=== PATIENT | male | born 1945 | race Caucasian/White ===

== ENCOUNTER 2016-09-15 22:20 | Inpatient (IN) | payer MEDICARE ==
[~2016-09-15] VITALS: Ht 170.1 cm; Wt 103.9 kg
[2016-09-15 22:20] VITALS: BP 148/75
[~2016-09-15 22:20] MED LIST: AMARYL4 MG PO; ASPIRIN325 M2 PO; ASPIRIN81 M1 PO; FISH OIL CONC1000 M1 PO; LEVOTHYROXIN0.125 MG PO; LISINOPRIL10 M1 PO; METFORMIN1000 MG PO; PRIMIDONE50 MG PO; VICODIN ES 7501 TAB PO; VITAMIN D350000 UNIT PO; ZYLOPRIM100 MG PO; ZYLOPRIM300 MG PO
[2016-09-15 23:18] LABS: BASO # 0.1 10*3/uL (0.0-0.1); BASO % 0.7 % (0.0-1.0); EOS # 0.2 10*3/uL (0.0-0.4); EOS % 3.1 % (1.0-4.0); HEMOGLOBIN 13.5 g/dl (14.0-18.0); LYMPH # 0.8 10*3/uL (1.3-4.4); MEAN CELL VOLUME 88.2 fl (80.0-94.0); MEAN CORPUSCULAR HGB 30.5 pg (27.0-31.0); MEAN CORPUSCULAR HGB CONC 34.6 g/dl (33.0-37.0); MEAN PLATELET VOLUME 10.4 fl (9.6-12.3); MONO # 0.5 10*3/uL (0.1-1.0); MONO % 6.1 % (3.0-9.0); NEUT # 5.8 10*3/uL (2.3-7.9); NEUT % 78.8 % (47.0-73.0); PLATELET COUNT AUTOMATED 71 10*3/uL (130-400); RED BLOOD COUNT 4.42 10*6/uL (4.50-5.90); RED CELL DISTRI WIDTH 15.4 % (0-14.5); WHITE BLOOD COUNT 7.3 10*3/uL (4.8-10.8)
[2016-09-15 23:25] LABS: INTERNATIONAL NORM RATIO 1.3 (2.0-3.5)
[2016-09-15 23:37] LABS: ALBUMIN 3.4 gm/dl (3.1-4.5); ALKALINE PHOSPHATASE 67 U/L (45-117); BILIRUBIN, TOTAL 1.8 mg/dl (0.2-1.0); BUN 15 mg/dl (7-24); CARBON DIOXIDE 18 mmol/L (21-32); CHLORIDE 107 mmol/L (98-107); EST GLOM FILT AFRICAN AMERICAN > 60 ml/min; GLUCOSE 116 mg/dL (65-99); MAGNESIUM 1.4 mg/dL (1.5-2.1); SGOT/AST 44 IU/L (3-35); SGPT/ALT 41 U/L (12-78); SODIUM 137 mmol/L (136-145); TOTAL PROTEIN 7.5 gm/dL (6.4-8.2); TROPONIN I 0.018 ng/ml (<0.5)
[2016-09-15 23:52] LABS: BILIRUBIN NEGATIVE (NEGATIVE); BLOOD 3+ (NEGATIVE); CLARITY CLEAR (CLEAR); COLOR YELLOW (YELLOW); GLUCOSE NEGATIVE (NEGATIVE); KETONE NEGATIVE (NEGATIVE); LEUKO ESTERASE NEGATIVE (NEGATIVE); NITRITE NEGATIVE (NEGATIVE); PH 5.5 (5.0-9.0); PROTEIN 1+ (NEGATIVE); UROBILINOGEN 0.2 E.U./dl (0.2-1.0)
[2016-09-16 00:06] VITALS: BP 142/68
[2016-09-16 00:10] LABS: RBC 31-40 rbc/hpf (0-2); URINE REFLEX COMMENT YES (NO)
[2016-09-16 01:14] LABS: LA>2 REFLEX 2 HR DRAW NOW
[2016-09-16] MEDS ORDERED: COREG6.25 MG PO (01:42)
[2016-09-16] MEDS ORDERED: CONSTULOSE10 GM/151 PO (01:43)
[2016-09-16 02:08] VITALS: BP 148/72
[2016-09-16 02:35] VITALS: BP 118/78
[2016-09-16 02:36] VITALS: BP 118/78
[2016-09-16 06:13] LABS: BASO % 0.5 % (0.0-1.0); EOS # 0.2 10*3/uL (0.0-0.4); EOS % 3.5 % (1.0-4.0); HEMATOCRIT 35.2 % (42.0-52.0); HEMOGLOBIN 11.9 g/dl (14.0-18.0); LYMPH # 0.8 10*3/uL (1.3-4.4); LYMPH % 14.4 % (27.0-41.0); MEAN CELL VOLUME 88.9 fl (80.0-94.0); MEAN CORPUSCULAR HGB 30.1 pg (27.0-31.0); MEAN CORPUSCULAR HGB CONC 33.8 g/dl (33.0-37.0); MEAN PLATELET VOLUME 11.5 fl (9.6-12.3); MONO # 0.5 10*3/uL (0.1-1.0); MONO % 9.9 % (3.0-9.0); NEUT # 3.9 10*3/uL (2.3-7.9); NEUT % 71.3 % (47.0-73.0); PLATELET COUNT AUTOMATED 60 10*3/uL (130-400); RED BLOOD COUNT 3.96 10*6/uL (4.50-5.90); RED CELL DISTRI WIDTH 15.4 % (0-14.5); WHITE BLOOD COUNT 5.5 10*3/uL (4.8-10.8)
[2016-09-16 06:21] LABS: CPK 93 U/L (39-308)
[2016-09-16 06:27] LABS: CKMB < 0.5 ng/ml (0.5-3.6)
[2016-09-16 06:49] LABS: ALKALINE PHOSPHATASE 60 U/L (45-117); BILIRUBIN, TOTAL 1.4 mg/dl (0.2-1.0); BUN 18 mg/dl (7-24); CARBON DIOXIDE 21 mmol/L (21-32); CHLORIDE 109 mmol/L (98-107); CHOLESTEROL 112 mg/dL (<200); EST GLOM FILT AFRICAN AMERICAN > 60 ml/min; FREE T4 1.13 ng/dl (0.76-1.46); GLUCOSE 109 mg/dL (65-99); HDL CHOLESTEROL 26 mg/dl (40-60); LDL CHOLESTEROL 57 mg/dL (9-159); MAGNESIUM 1.8 mg/dL (1.5-2.1); PHOSPHOROUS 2.1 mg/dL (2.5-4.9); POTASSIUM 3.6 mmol/L (3.5-5.1); SGOT/AST 39 IU/L (3-35); SGPT/ALT 36 U/L (12-78); SODIUM 140 mmol/L (136-145); THYROID STIM HORMONE (HS) 0.322 uIU/ml (0.358-4.75); TOTAL PROTEIN 6.6 gm/dL (6.4-8.2); TRIGLYCERIDES 143 mg/dl (<150); VLDL CHOLESTEROL 29 mg/dL (6-40)
[2016-09-16 06:49] LABS: INTERNATIONAL NORM RATIO 1.3 (2.0-3.5); PROTHROMBIN TIME 14.2 SECONDS (9.0-12.4)
[2016-09-16 07:35] LABS: FOLIC ACID 7.28 ng/mL (>5.38); VITAMIN D, 25-HYDROXY 68.2 ng/mL (30-100)
[2016-09-16 08:00] VITALS: BP 130/60
[2016-09-16 12:00] VITALS: BP 125/60
[2016-09-16 12:06] LABS: CKMB 0.8 ng/ml (0.5-3.6); TROPONIN I 0.037 ng/ml (<0.5)
[2016-09-16] MEDS ORDERED: LACTULOSE20 GM/30 M PO (13:12)
[2016-09-28] MEDS ORDERED: PROTONIX40 MG PO (14:50)
== END 2016-09-16 14:20 | disposition home or self-care (01) | DRG 442 ==
LOC: ED 22:20 → EDHOLD 09-16 00:55 → 4E 09-16 01:18
PROVIDERS: Emergency Medicine Emergency Medical Services; Internal Medicine
DX: K72.90 Hepatic failure, unspecified without coma (principal); N17.9 Acute kidney failure, unspecified; D64.9 Anemia, unspecified; I10 Essential (primary) hypertension; E11.9 Type 2 diabetes mellitus without complications; Z85.038 Personal history of other malignant neoplasm of large intestine; K74.60 Unspecified cirrhosis of liver; Z98.890 Other specified postprocedural states; Z88.1 Allergy status to other antibiotic agents; Z79.84 Long term (current) use of oral hypoglycemic drugs; Z79.899 Other long term (current) drug therapy

== ENCOUNTER → 2016-11-28 | Outpatient (CLI) | payer MEDICARE ==
[~2016-11-28] MED LIST changes: +CONSTULOSE10 GM/151 PO; +COREG6.25 MG PO; +LACTULOSE20 GM/30 M PO; +PROTONIX40 MG PO
[2016-11-28 12:55] LABS: HEMOGLOBIN A1c 6.6 % (4.8-5.6)
[2016-11-28 13:04] LABS: ALBUMIN 3.4 gm/dl (3.1-4.5); ALKALINE PHOSPHATASE 112 U/L (45-117); BILIRUBIN, TOTAL 1.4 mg/dl (0.2-1.0); BUN 19 mg/dl (7-24); CARBON DIOXIDE 24 mmol/L (21-32); CHLORIDE 107 mmol/L (98-107); CHOLESTEROL 143 mg/dL (<200); EST GLOM FILT AFRICAN AMERICAN > 60 ml/min; GLUCOSE 136 mg/dL (65-99); HDL CHOLESTEROL 25 mg/dl (40-60); POTASSIUM 4.1 mmol/L (3.5-5.1); SGOT/AST 40 IU/L (3-35); SGPT/ALT 41 U/L (12-78); SODIUM 142 mmol/L (136-145)
[2016-11-28 13:14] LABS: LDL CHOLESTEROL 73 mg/dL (9-159); THYROID STIM HORMONE (HS) 0.153 uIU/ml (0.358-4.75); TRIGLYCERIDES 226 mg/dl (<150); VLDL CHOLESTEROL 45 mg/dL (6-40)
== END | disposition home or self-care (01) ==
LOC: LAB 11:57
PROVIDERS: Family Medicine
DX: E11.649 Type 2 diabetes mellitus with hypoglycemia without coma (principal); I10 Essential (primary) hypertension; E78.5 Hyperlipidemia, unspecified; E03.9 Hypothyroidism, unspecified; K74.60 Unspecified cirrhosis of liver

== ENCOUNTER → 2016-12-07 | Outpatient (CLI) | payer MEDICARE | END | disposition home or self-care (01) | LOC: LAB 11:00 | DX: K74.69 Other cirrhosis of liver (principal) ==

== ENCOUNTER 2017-04-10 17:29 | Inpatient (IN) | payer MEDICARE ==
[~2017-04-10] VITALS: Ht 170.2 cm; Wt 103.1 kg
[~2017-04-10 17:29] MED LIST changes: -OMEPRAZOLE D/R20 MG PO; -XIFAXAN550 MG PO
[2017-04-10 17:55] VITALS: BP 122/58
[2017-04-10 19:44] LABS: BASO % 0.7 % (0.0-1.0); EOS # 0.2 10*3/uL (0.0-0.4); EOS % 4.3 % (1.0-4.0); HEMATOCRIT 34.9 % (42.0-52.0); HEMOGLOBIN 12.1 g/dl (14.0-18.0); LYMPH # 1.2 10*3/uL (1.3-4.4); LYMPH % 21.5 % (27.0-41.0); MEAN CELL VOLUME 92.8 fl (80.0-94.0); MEAN CORPUSCULAR HGB 32.2 pg (27.0-31.0); MEAN CORPUSCULAR HGB CONC 34.7 g/dl (33.0-37.0); MEAN PLATELET VOLUME 11.7 fl (9.6-12.3); MONO # 0.5 10*3/uL (0.1-1.0); MONO % 9.9 % (3.0-9.0); NEUT # 3.4 10*3/uL (2.3-7.9); NEUT % 63.2 % (47.0-73.0); PLATELET COUNT AUTOMATED 61 10*3/uL (130-400); RED BLOOD COUNT 3.76 10*6/uL (4.50-5.90); RED CELL DISTRI WIDTH 15.6 % (0-14.5); WHITE BLOOD COUNT 5.3 10*3/uL (4.8-10.8)
[2017-04-10 19:53] LABS: INTERNATIONAL NORM RATIO 1.2 (2.0-3.5)
[2017-04-10 20:02] LABS: ALBUMIN 3.3 gm/dl (3.1-4.5); ALKALINE PHOSPHATASE 113 U/L (45-117); BUN 15 mg/dl (7-24); CHLORIDE 107 mmol/L (98-107); CREATININE 1.36 mg/dL (0.70-1.30); LIPASE 400 U/L (73-393); POTASSIUM 4.2 mmol/L (3.5-5.1); SGOT/AST 64 IU/L (3-35); SGPT/ALT 56 U/L (12-78); SODIUM 141 mmol/L (136-145); TOTAL PROTEIN 7.8 gm/dL (6.4-8.2)
[2017-04-10 23:15] VITALS: BP 168/79
[2017-04-11] VITALS: BP 168/79
[2017-04-11 06:45] LABS: BASO % 0.7 % (0.0-1.0); EOS # 0.2 10*3/uL (0.0-0.4); EOS % 4.2 % (1.0-4.0); HEMATOCRIT 34.7 % (42.0-52.0); HEMOGLOBIN 12.1 g/dl (14.0-18.0); LYMPH # 1.1 10*3/uL (1.3-4.4); LYMPH % 25.8 % (27.0-41.0); MEAN CELL VOLUME 92.8 fl (80.0-94.0); MEAN CORPUSCULAR HGB 32.4 pg (27.0-31.0); MEAN CORPUSCULAR HGB CONC 34.9 g/dl (33.0-37.0); MEAN PLATELET VOLUME 11.3 fl (9.6-12.3); MONO # 0.5 10*3/uL (0.1-1.0); MONO % 10.5 % (3.0-9.0); NEUT # 2.5 10*3/uL (2.3-7.9); NEUT % 58.3 % (47.0-73.0); PLATELET COUNT AUTOMATED 50 10*3/uL (130-400); RED BLOOD COUNT 3.74 10*6/uL (4.50-5.90); RED CELL DISTRI WIDTH 15.4 % (0-14.5); WHITE BLOOD COUNT 4.3 10*3/uL (4.8-10.8)
[2017-04-11 07:11] LABS: BUN 14 mg/dl (7-24); CHLORIDE 110 mmol/L (98-107); CHOLESTEROL 144 mg/dL (<200); CREATININE 1.14 mg/dL (0.70-1.30); HDL CHOLESTEROL 28 mg/dl (40-60); LDL CHOLESTEROL 83 mg/dL (9-159); MAGNESIUM 1.8 mg/dL (1.5-2.1); PHOSPHOROUS 3.3 mg/dL (2.5-4.9); POTASSIUM 4.3 mmol/L (3.5-5.1); SODIUM 145 mmol/L (136-145); TRIGLYCERIDES 163 mg/dl (<150); VLDL CHOLESTEROL 33 mg/dL (6-40)
[2017-04-11 07:28] LABS: ACT PARTIAL THROMBO TIME 31.8 SECONDS (20.8-31.5); INTERNATIONAL NORM RATIO 1.3 (2.0-3.5)
[2017-04-11 08:04] VITALS: BP 136/60
[2017-04-11 08:07] LABS: VITAMIN D, 25-HYDROXY 72.1 ng/mL (30-100)
[2017-04-11] MEDS ORDERED: XIFAXAN550 MG PO (09:05)
[2017-04-11] MEDS ORDERED: OMEPRAZOLE D/R20 MG PO (09:05)
[2017-04-11 12:00] VITALS: BP 160/80
[2017-04-11] MEDS ORDERED: LACTULOSE20 GM/30 M PO (12:27)
== END 2017-04-11 12:50 | disposition home or self-care (01) | DRG 441 ==
LOC: ED 17:29 → 4E 21:29 → EDHOLD 21:29 → 4E 22:09
PROVIDERS: Internal Medicine; Physician Assistant; ADMIT Internal Medicine
DX: K72.90 Hepatic failure, unspecified without coma (principal); N17.0 Acute kidney failure with tubular necrosis; G93.41 Metabolic encephalopathy; D61.818 Other pancytopenia; E72.4 Disorders of ornithine metabolism; N18.3 Chronic kidney disease, stage 3 (moderate); E11.22 Type 2 diabetes mellitus with diabetic chronic kidney disease; D69.6 Thrombocytopenia, unspecified; I12.9 Hypertensive chronic kidney disease with stage 1 through stage 4 chronic kidney disease, or unspecified chronic kidney disease; G20 Parkinson's disease; K75.81 Nonalcoholic steatohepatitis (NASH); E66.01 Morbid (severe) obesity due to excess calories; Z68.35 Body mass index [BMI] 35.0-35.9, adult; Z85.038 Personal history of other malignant neoplasm of large intestine; Z88.1 Allergy status to other antibiotic agents; Z82.49 Family history of ischemic heart disease and other diseases of the circulatory system; Z90.49 Acquired absence of other specified parts of digestive tract; Z79.899 Other long term (current) drug therapy; Z79.84 Long term (current) use of oral hypoglycemic drugs

== ENCOUNTER → 2017-04-10 | Outpatient (CLI) | payer MEDICARE ==
[~2017-04-10] MED LIST changes: -AMARYL4 MG PO; +Amaryl2 MG PO; -LEVOTHYROXIN0.125 MG PO; +LEVOTHYROXINE100 MC1 PO; +OMEPRAZOLE D/R20 MG PO; +XIFAXAN550 MG PO
== END | disposition home or self-care (01) ==
LOC: LAB 13:40
DX: K72.90 Hepatic failure, unspecified without coma (principal)

== ENCOUNTER → 2017-07-25 | Outpatient (CLI) | payer MEDICARE ==
[~2017-07-25] MED LIST changes: +OMEPRAZOLE D/R20 MG PO; +XIFAXAN550 MG PO
[2017-07-25 12:27] LABS: BASO # 0.1 10*3/uL (0.0-0.1); BASO % 0.7 % (0.0-1.0); EOS # 0.3 10*3/uL (0.0-0.4); EOS % 4.7 % (1.0-4.0); HEMATOCRIT 39.3 % (42.0-52.0); HEMOGLOBIN 13.5 g/dl (14.0-18.0); LYMPH # 1.5 10*3/uL (1.3-4.4); LYMPH % 20.6 % (27.0-41.0); MEAN CELL VOLUME 88.9 fl (80.0-94.0); MEAN CORPUSCULAR HGB 30.5 pg (27.0-31.0); MEAN CORPUSCULAR HGB CONC 34.4 g/dl (33.0-37.0); MONO # 0.6 10*3/uL (0.1-1.0); MONO % 7.8 % (3.0-9.0); NEUT # 4.6 10*3/uL (2.3-7.9); NEUT % 65.9 % (47.0-73.0); PLATELET COUNT AUTOMATED 70 10*3/uL (130-400); RED BLOOD COUNT 4.42 10*6/uL (4.50-5.90); RED CELL DISTRI WIDTH 14.3 % (0-14.5)
[2017-07-25 13:01] LABS: ALBUMIN 3.5 gm/dl (3.1-4.5); CREATININE 1.59 mg/dL (0.70-1.30); INTERNATIONAL NORM RATIO 1.2 (2.0-3.5); POTASSIUM 4.5 mmol/L (3.5-5.1); TOTAL PROTEIN 8.1 gm/dL (6.4-8.2)
== END | disposition home or self-care (01) ==
LOC: LAB 11:50
PROVIDERS: Internal Medicine Gastroenterology
DX: C18.9 Malignant neoplasm of colon, unspecified (principal); K74.69 Other cirrhosis of liver; D64.9 Anemia, unspecified

== ENCOUNTER → 2017-11-14 | Outpatient (CLI) | payer MEDICARE ==
[2017-11-14 13:40] LABS: BASO # 0.1 10*3/uL (0.0-0.1); EOS # 0.3 10*3/uL (0.0-0.4); EOS % 4.2 % (1.0-4.0); HEMATOCRIT 38.1 % (42.0-52.0); LYMPH # 1.3 10*3/uL (1.3-4.4); LYMPH % 22.6 % (27.0-41.0); MEAN CELL VOLUME 90.5 fl (80.0-94.0); MEAN CORPUSCULAR HGB 30.9 pg (27.0-31.0); MEAN CORPUSCULAR HGB CONC 34.1 g/dl (33.0-37.0); MEAN PLATELET VOLUME 10.1 fl (9.6-12.3); MONO # 0.5 10*3/uL (0.1-1.0); MONO % 8.7 % (3.0-9.0); NEUT # 3.7 10*3/uL (2.3-7.9); NEUT % 63.2 % (47.0-73.0); PLATELET COUNT AUTOMATED 51 10*3/uL (130-400); RED BLOOD COUNT 4.21 10*6/uL (4.50-5.90); RED CELL DISTRI WIDTH 15.1 % (0-14.5); WHITE BLOOD COUNT 5.9 10*3/uL (4.8-10.8)
[2017-11-14 13:46] LABS: ALBUMIN 3.4 gm/dl (3.1-4.5); CREATININE 1.43 mg/dL (0.70-1.30); POTASSIUM 4.1 mmol/L (3.5-5.1); TOTAL PROTEIN 8.1 gm/dL (6.4-8.2)
[2017-11-14 14:00] LABS: INTERNATIONAL NORM RATIO 1.2 (2.0-3.5)
== END | disposition home or self-care (01) ==
LOC: LAB 12:58
PROVIDERS: Internal Medicine Gastroenterology
DX: K74.69 Other cirrhosis of liver (principal)

== ENCOUNTER 2017-12-16 13:22 | Emergency (ER) | payer MEDICARE ==
[~2017-12-16] VITALS: Ht 170.1 cm; Wt 108.0 kg
== END 2017-12-16 14:49 | disposition home or self-care (01) ==
LOC: ED 13:22
DX: S42.032A Displaced fracture of lateral end of left clavicle, initial encounter for closed fracture (principal); E11.22 Type 2 diabetes mellitus with diabetic chronic kidney disease; I12.9 Hypertensive chronic kidney disease with stage 1 through stage 4 chronic kidney disease, or unspecified chronic kidney disease; N18.3 Chronic kidney disease, stage 3 (moderate); Z88.0 Allergy status to penicillin; Z88.8 Allergy status to other drugs, medicaments and biological substances; Z79.899 Other long term (current) drug therapy; W06.XXXA Fall from bed, initial encounter; Y93.89 Activity, other specified; Y92.89 Other specified places as the place of occurrence of the external cause; Y99.8 Other external cause status

== ENCOUNTER → 2018-04-23 | Day surgery (SDC) | payer MEDICARE ==
[~2018-04-23] VITALS: Ht 170.1 cm; Wt 105.7 kg
[~2018-04-23] MED LIST changes: +LACTULOSE10 GM/151 PO; +LEVEMIR100 UNIT/1 SC
--- NOTE | ~2018-04-23 | O ---
[place], [place] OPERATIVE NOTE NAME: SUZAN MARTIN UNIT #: [id number] ROOM: DOCTOR: NICK ANDRADE MD BIRTHDATE: [birth year] DOS: 04/23/2018 PREOPERATIVE DIAGNOSIS: Cataract, right eye. POSTOPERATIVE DIAGNOSIS: Cataract, right eye. OPERATION: Extracapsular cataract extraction by phacoemulsification with posterior chamber intraocular lens implantation, right eye. ANESTHESIA: Monitored standby. OPERATIVE FINDINGS AND PROCEDURE: 2% Xylocaine topical anesthetic gel was applied to the eye in the preop area. The patient was taken to the operating room and prepped and draped in the standard fashion for sterile intraocular surgery. A time out procedure was performed verifying correct patient, correct site and corrects lens with Sayra Andrade M.D. The operating microscope was swung into position and the lid speculum was inserted. Using a Ellie paracentesis blade, a paracentesis was made through clear cornea. Viscoelastic was used to fill the anterior chamber. Using a metal keratome a 2.4 mm self-sealing clear corneal cataract incision was made temporally at the limbus. Using a pre-bent 25 gauge cystotome needle, a standard continuous curvilinear capsulorrhexis was performed. The anterior capsule was removed with forceps. The lens nucleus was hydrodissected and phacoemulsified in the posterior chamber. Cortical material was removed with the irrigation aspiration hand piece and the posterior capsule was then polished with a curet under irrigation. The posterior chamber and capsular bag were filled with viscoelastic. A posterior chamber intraocular lens manufactured by: [employer] [id number], Model #[id number], and 18.5 diopters in strength were then inserted into the posterior chamber and within the capsular bag using the lens cartridge and injector system. Viscoelastic was removed using the irrigation aspiration handpiece. The anterior chamber was filled with balanced salt solution through the paracentesis. Both the paracentesis site and cataract incisions were hydrated with BSS and verified to be water-tight and self-sealing. The incision checked to be water-tight using a Weck-Denisha sponge. The integrity of the cataract wound and ocular tension were checked. Lid speculum and drapes were removed. The patient was transferred from the operating room to the recovery room in satisfactory condition. [place], [place] OPERATIVE NOTE NAME: SUZAN MARTIN UNIT #: [id number] ROOM: DOCTOR: LUPE COULTER,NICK BIRTHDATE: [birth year] NICK ANDRADE MD CM:OPRECORD:OPERATIVE NOTE [id number] NICK ANDRADE MD 04/23/18 1121 interface
[2018-04-23 10:03] VITALS: BP 134/68
[2018-04-23 10:38] VITALS: BP 128/87
[2018-04-23 10:55] VITALS: BP 126/60
[2018-04-23 11:05] VITALS: BP 122/63
== END | disposition home or self-care (01) ==
LOC: SDC 04-17 02:31
DX: E11.36 Type 2 diabetes mellitus with diabetic cataract (principal); H25.811 Combined forms of age-related cataract, right eye; I10 Essential (primary) hypertension; I25.10 Atherosclerotic heart disease of native coronary artery without angina pectoris; K21.9 Gastro-esophageal reflux disease without esophagitis; E11.40 Type 2 diabetes mellitus with diabetic neuropathy, unspecified; E03.9 Hypothyroidism, unspecified; M19.90 Unspecified osteoarthritis, unspecified site; G89.29 Other chronic pain; G47.30 Sleep apnea, unspecified; M10.9 Gout, unspecified; E66.9 Obesity, unspecified; Z68.36 Body mass index [BMI] 36.0-36.9, adult; Z88.1 Allergy status to other antibiotic agents; Z98.42 Cataract extraction status, left eye; Z90.49 Acquired absence of other specified parts of digestive tract; Z86.73 Personal history of transient ischemic attack (TIA), and cerebral infarction without residual deficits; Z99.89 Dependence on other enabling machines and devices; Z85.038 Personal history of other malignant neoplasm of large intestine

== ENCOUNTER → 2018-06-05 | Outpatient (CLI) | payer MEDICARE ==
[2018-06-05 15:38] LABS: BASO # 0.1 10*3/uL (0.0-0.1); BASO % 0.9 % (0.0-1.0); EOS # 0.2 10*3/uL (0.0-0.4); HEMATOCRIT 35.1 % (42.0-52.0); LYMPH # 1.3 10*3/uL (1.3-4.4); LYMPH % 22.1 % (27.0-41.0); MEAN CELL VOLUME 91.4 fl (80.0-94.0); MEAN CORPUSCULAR HGB 31.3 pg (27.0-31.0); MEAN CORPUSCULAR HGB CONC 34.2 g/dl (33.0-37.0); MEAN PLATELET VOLUME 11.2 fl (9.6-12.3); MONO # 0.6 10*3/uL (0.1-1.0); NEUT # 3.6 10*3/uL (2.3-7.9); NEUT % 62.7 % (47.0-73.0); PLATELET COUNT AUTOMATED 58 10*3/uL (130-400); RED BLOOD COUNT 3.84 10*6/uL (4.50-5.90); RED CELL DISTRI WIDTH 15.2 % (0-14.5); WHITE BLOOD COUNT 5.8 10*3/uL (4.8-10.8)
[2018-06-05 15:39] LABS: BILIRUBIN NEGATIVE (NEGATIVE); BLOOD 2+ (NEGATIVE); CLARITY CLEAR (CLEAR); COLOR YELLOW (YELLOW); GLUCOSE NEGATIVE (NEGATIVE); KETONE NEGATIVE (NEGATIVE); LEUKO ESTERASE TRACE (NEGATIVE); NITRITE NEGATIVE (NEGATIVE); PH 5.5 (5.0-9.0); SPECIFIC GRAVITY >= 1.030 (1.005-1.030); UROBILINOGEN 0.2 E.U./dl (0.2-1.0)
[2018-06-05 15:56] LABS: ALBUMIN 3.3 gm/dl (3.1-4.5); CREATININE 1.49 mg/dL (0.70-1.30); POTASSIUM 3.8 mmol/L (3.5-5.1); TOTAL PROTEIN 7.7 gm/dL (6.4-8.2)
[2018-06-05 16:03] LABS: BACTERIA TRACE; EPITHELIAL CELLS 20-25
== END | disposition home or self-care (01) ==
LOC: LAB 14:37
PROVIDERS: Physician Assistant Medical
DX: I51.7 Cardiomegaly (principal); K72.90 Hepatic failure, unspecified without coma; K74.69 Other cirrhosis of liver; E11.9 Type 2 diabetes mellitus without complications; Z86.73 Personal history of transient ischemic attack (TIA), and cerebral infarction without residual deficits; Z85.038 Personal history of other malignant neoplasm of large intestine

== ENCOUNTER → 2018-06-16 | Outpatient (CLI) | payer MEDICARE | END | disposition home or self-care (01) | LOC: LAB 14:23 | DX: K72.90 Hepatic failure, unspecified without coma (principal) ==

== ENCOUNTER 2018-08-25 13:15 | Inpatient (IN) | payer MEDICARE ==
[~2018-08-25] VITALS: Ht 170.1 cm; Wt 106.1 kg
--- NOTE | ~2018-08-25 | PR ---
[place], [place] PROGRESS NOTE NAME: SUZAN MARTIN UNIT #: [id number] ROOM: 415 DOCTOR: MEHRAN NEWMAN MD BIRTHDATE: [birth year] DOS: 08/27/2018 CARDIOLOGY PROGRESS NOTE SUBJECTIVE: The patient was seen at his bedside today 08/27/2018 with family in attendance. He had just received pain medication and was very sleepy. His family states that his rectal abscess area is very painful. He has not had any dyspnea or chest pain during this hospitalization. I reviewed his echocardiogram done yesterday. Left ventricular size was normal with abnormal septal motion consistent with a left bundle-branch block. His ejection fraction is mildly impaired between 50% and 55% with stage 2 diastolic dysfunction. The aortic valve is sclerotic, but not stenotic. The patient's family states that he did have a stress test a few years ago with Dr. Hammond at the [facility] in [place] and no further evaluation was felt to be necessary at that time. PHYSICAL EXAMINATION: VITAL SIGNS: Today, his pulse is 60 and regular, blood pressure is 128/55. He is afebrile. NECK: Supple. He has no jugular venous distention. IMPRESSION: 1. Elevated troponin level, most likely this is due to demand ischemia. The patient does not show any clinical evidence of an acute myocardial infarction. 2. Chronic left bundle-branch block. 3. Nonalcoholic steatohepatitis with cirrhosis. 4. Recurrent elevation of troponin levels. 5. Type 2 diabetes mellitus, on insulin. 6. Essential hypertension. 7. Chronic kidney disease. 8. Perirectal abscess, status post debridement and drainage. PLAN: At this point, no other cardiac workup is felt to be necessary. We will continue to treat the patient empirically, especially given his other medical problems. [facility] Cardiology and I thank the hospitalist physicians for asking our advice regarding the patient's care. [place], [place] PROGRESS NOTE NAME: LI MARTINORD Gris UNIT #: [id number] ROOM: 415 DOCTOR: MEHRAN NEWMAN MD BIRTHDATE: [birth year] MEHRAN NEWMAN MD :PNTRANS [id number] MEHRAN NEWMAN MD 08/28/18 0549 interface
--- NOTE | ~2018-08-25 | EKG ---
[place], [place] ELECTROCARDIOGRAM REPORT NAME: SUZAN MARTIN UNIT #: [id number] ROOM: 415 DOCTOR: DIANE DRAFT REPORT BIRTHDATE: [birth year] [facility] Test Date: 2018-08-25 Test Time: 14:25:04 Pat Name: SUZAN MARTIN Department: Room: 415 Gender: M Roll Hauler: Tanisha Retana : 1945 Requested By: KESHA SORENSEN Order Number: [id number] Reading MD: Dominick Sandoval MD Measurements Intervals [place] Rate: 68 P: PA: QRS: -40 QRSD: 158 T: 114 QT: 485 QTc: 516 Interpretive Statements Sinus rhythm Left bundle branch block Baseline wander in lead(s) III,V2 Electronically Signed On 08-26-2018 7:47:23 PST by Dominick Sandoval MD CM:EKGRPT:ELECTROCARDIOGRAM REPORT 1425 0747 KESHA CONTRERAS DRAFT REPORT KESHA SORENSEN MD
--- NOTE | ~2018-08-25 | EKG ---
[place], [place] ELECTROCARDIOGRAM REPORT NAME: SUZAN MARTIN UNIT #: [id number] ROOM: 415 DOCTOR: DIANE DRAFT REPORT BIRTHDATE: [birth year] [facility] Test Date: 2018-08-25 Test Time: 17:20:12 Pat Name: SUZAN MARTIN Department: Room: 415 Gender: M Translational Specialist: Tanisha Retana : 1945 Requested By: TACHO NIELSEN Order Number: [id number] Reading MD: Dominick Sandoval MD Measurements Intervals [place] Rate: 78 P: 25 DC: 199 QRS: -25 QRSD: 153 T: 85 QT: 438 QTc: 499 Interpretive Statements Sinus rhythm Left bundle branch block No change from earlier ECG this date Electronically Signed On 08-26-2018 7:48:11 PST by Dominick Sandoval MD CM:EKGRPT:ELECTROCARDIOGRAM REPORT 0748 TACHO NIELSEN EPIPHANY DRAFT REPORT TACHO NIELSEN
--- NOTE | ~2018-08-25 | PR ---
[place], [place] PROGRESS NOTE [id number] UNIT #: [id number] ROOM: 415 DOCTOR: MEHRAN NEWMAN MD BIRTHDATE: [birth year] DOS: 08/28/2018 SUBJECTIVE: The patient was seen at his bedside today, 08/28/2018 for followup of an elevated troponin level in the setting of a left bundle-branch block. He is a 72-year-old man with multiple medical problems. He was diagnosed with colon cancer about 6-7 years ago and underwent colon resection. He is felt to be cancer free at this time. He has diabetes and has developed nonalcoholic steatohepatitis with cirrhosis and liver failure. He has episodic elevation in his ammonia levels and was brought in to the hospital on this occasion because of confusion, weakness and a high ammonia. On admission, he was found to have a rectal abscess and this has been drained since the hospitalization. He was felt to be septic and as part of his sepsis workup, a troponin level was drawn. This was abnormal with a peak level of 0.141. Subsequent levels have fallen back to normal ranges. The patient's family did note that he had a stress test a few years ago by Dr. Hammond at the [facility] in [place]. No further evaluation was felt to be necessary at that time. PHYSICAL EXAMINATION: VITAL SIGNS: Today, his pulse is 56 and regular, blood pressure is 113/48. He is afebrile. NECK: Supple. He has no jugular distention. Carotids are full. LUNGS: Respirations are unlabored. His chest is clear to auscultation and percussion. HEART: Has a regular rhythm with an S4 gallop, but no S3. The PMI is not displaced and there is no precordial heave, lift or thrill. ABDOMEN: Soft and normally active without masses, organomegaly or bruits. EXTREMITIES: Show trace edema. Peripheral pulses are palpable in the feet. IMPRESSION: 1. Elevated troponin level, most likely due to demand ischemia. 2. Chronic left bundle-branch block. 3. Nonalcoholic steatohepatitis with cirrhosis. 4. Recurrent mild elevation in troponin. 5. Type 2 diabetes mellitus, on insulin. 6. Essential hypertension. 7. Chronic renal insufficiency. 8. Perirectal abscess, status post debridement and drainage. PLAN: No other cardiac workup will be considered at this time. We will sign off, but remain available if his status should change. [facility] Cardiology and I thank the hospitalist physicians for asking our advice regarding his care. [place], [place] PROGRESS NOTE NAME: SUZAN MARTIN UNIT #: [id number] ROOM: [facility] DOCTOR: MEHRAN NEWMAN MD BIRTHDATE: [birth year] MEHRAN NEWMAN MD CM:PNTRANS [phone] MEHRAN NEWMAN MD 08/29/18 0530 interface
--- NOTE | ~2018-08-25 | EKG ---
[place], [place] ELECTROCARDIOGRAM REPORT NAME: SUZAN MARTIN UNIT #: [id number] ROOM: 415 DOCTOR: DIANE DRAFT REPORT BIRTHDATE: [birth year] [facility] Test Date: 2018-08-25 Test Time: 19:52:28 Pat Name: SUZAN MARTIN Department: Room: 415 Gender: M Tripe Finisher: Tanisha Retana : 1945 Requested By: TACHO NIELSEN Order Number: [id number] Reading MD: Dominick Sandoval MD Measurements Intervals [place] Rate: 74 P: 45 PA: 185 QRS: -30 QRSD: 148 T: 79 QT: 440 QTc: 489 Interpretive Statements Sinus rhythm Left bundle branch block No change from earlier ECG this date Electronically Signed On 08-26-2018 7:50:04 PST by Dominick Sandoval MD CM:EKGRPT:ELECTROCARDIOGRAM REPORT 51 0750 TACHO NIELSEN EPIPHANY DRAFT REPORT TACHO NIELSEN
--- NOTE | ~2018-08-25 | EKG ---
[place], [place] ELECTROCARDIOGRAM REPORT NAME: SUZAN MARTIN UNIT #: [id number] ROOM: 415 DOCTOR: DIANE DRAFT REPORT BIRTHDATE: [birth year] [facility] Test Date: 2018-08-26 Test Time: 00:11:08 Pat Name: SUZAN MARTIN Department: Room: [facility] 1 Gender: M Raftsman: Tanisha Retana : 1945 Requested By: NEHEMIAS TAY Order Number: [id number] Reading MD: Dominick Sandoval MD Measurements Intervals [place] Rate: 66 P: WI: QRS: -33 QRSD: 151 T: 80 QT: 476 QTc: 499 Interpretive Statements Sinus rhythm with first degree AV block Left bundle branch block Baseline wander in lead(s) V3 Compared to previous tracing, no significant change Electronically Signed On 08-26-2018 7:51:06 PST by Dominick Sandoval MD CM:EKGRPT:ELECTROCARDIOGRAM REPORT 0011 0751 NEHEMIAS GIBBONS DRAFT REPORT NEHEMIAS TAY DO
--- NOTE | ~2018-08-25 | EKG ---
[place], [place] ELECTROCARDIOGRAM REPORT NAME: SUZAN MARTIN UNIT #: [id number] ROOM: 415 DOCTOR: DIANE DRAFT REPORT BIRTHDATE: [birth year] [facility] Test Date: 2018-08-25 Test Time: 23:07:36 Pat Name: SUZAN MARTIN Department: Room: 415 Gender: M Fruit Loader: Tanisha Retana : 1945 Requested By: TACHO NIELSEN Order Number: [id number] Reading MD: Dominick Sandoval MD Measurements Intervals [place] Rate: 68 P: 62 MS: 235 QRS: -36 QRSD: 145 T: 90 QT: 465 QTc: 495 Interpretive Statements Sinus rhythm Prolonged MS interval Left bundle branch block Baseline wander in lead(s) V2 No change from earlier ECG this date Electronically Signed On 08-26-2018 7:50:25 PST by Dominick Sandoval MD CM:EKGRPT:ELECTROCARDIOGRAM REPORT 0750 TACHO WELDONANY DRAFT REPORT TACHO NIELSEN
--- NOTE | ~2018-08-25 | CON ---
[place], [place] REPORT OF CONSULTATION NAME: SUZAN MARTIN UNIT #: [id number] ROOM: 415 DOCTOR: MEHRAN NEWMAN MD BIRTHDATE: [birth year] DOS: 08/26/2018 CARDIOLOGY CONSULTATION REASON FOR CONSULTATION: Elevated troponin level, left bundle-branch block. HISTORY: The patient is a 72-year-old man with multiple medical problems. He suffered a colon cancer about 6-7 years ago and did undergo colon resection. He is felt to be cancer free at this time. He does have diabetes and has developed nonalcoholic steatohepatitis with cirrhosis and liver failure. He does have episodic elevation in his ammonia levels and was brought into the hospital on this occasion because of elevated ammonia, confusion and weakness. On admission, he was found to have a rectal abscess and Surgery has been consulted to treat this. He was felt to probably be septic. As part of his sepsis assessment, he did have a troponin level drawn. The troponin was 0.052 on admission and leslie to 0.141. The patient had no chest pain, but cardiac assessment was felt to be indicated. Review of troponin levels drawn as far back as 01/2016 showed that he always has some measurable level of troponin; however, his troponin is somewhat more elevated now that it has been in the past. The patient denies any history of heart disease and denies chest pain, palpitations, lightheadedness or syncope. He has never had a heart attack or catheterization. PAST HISTORY: Includes: 1. Colon cancer, resected in 2011. 2. Hypertension. 3. Hypothyroidism. 4. Protein-calorie malnutrition. 5. Nonalcoholic steatohepatitis. 6. Chronic left bundle-branch block. Review of old records indicates that this has been present at least since 08/2016. 7. Type 2 diabetes mellitus. 8. Hospitalization with recurrent confusion due to elevated ammonia levels. MEDICATIONS: Prior to admission; allopurinol 300 mg daily, carvedilol 6.25 mg b.i.d., cholecalciferol 50,000 units weekly, glimepiride 4 mg daily, lactulose 30 mL t.i.d., levothyroxine 100 mcg daily, lisinopril 10 mg daily, omeprazole 20 mg daily, primidone 50 mg t.i.d., rifaximin 550 mg b.i.d., and Levemir insulin 35 units subcutaneously daily. ALLERGIES: He lists allergies to AMPICILLIN and SULBACTAM (allergic reaction to UNASYN). FAMILY HISTORY: The patient's mother at age 49 from a heart attack. Father is estranged. REVIEW OF SYSTEMS: The patient denies diplopia. He has been generally weak, [place], [place] REPORT OF CONSULTATION NAME: SUZAN MARTIN UNIT #: [id number] ROOM: [facility] DOCTOR: MEHRAN NEWMAN MD BIRTHDATE: [birth year] but denies focal weakness. He denies nausea or vomiting. He denies fevers or chills. He denies hemoptysis or hematemesis. He denies any dyspnea or chest pain. He denies palpitations or syncope. He does have some perirectal pain. He denies hematemesis or hematuria. He denies any blood in his stools. He does have mild peripheral edema. Remainder of the review of systems is negative except as noted above. SOCIAL HISTORY: The patient has never been a drinker and does not smoke. He does not use illegal drugs. PHYSICAL EXAMINATION: GENERAL: The patient is an overweight white male who is awake, alert and oriented. VITAL SIGNS: Pulse is 67 and regular, blood pressure is 152/86. He is afebrile, although he did have a temperature of 101.8 on admission. He weighs 106.1 kg and has a body mass index of 36.7. HEENT: Normocephalic and atraumatic. Extraocular muscles are intact. Sclerae are clear. Pupils equal, round and react to light. The oral mucosa is moist. Tongue is midline. NECK: Supple. He has no jugular distention. Carotids are full. There are no bruits. He has no neck or supraclavicular masses and no thyromegaly. LUNGS: Respirations are unlabored. His chest is clear to auscultation and percussion. He has no presacral edema. CARDIOVASCULAR: His heart has a regular rhythm with an S4 gallop. There is no S3. The PMI is not displaced. There is no precordial heave, lift or thrill. ABDOMEN: Soft and normally active without masses, organomegaly or bruits. EXTREMITIES: Showed trace edema. Peripheral pulses are palpable in the feet. DIAGNOSTIC DATA: I reviewed his electrocardiograms, which shows sinus rhythm with a first degree AV block and a left bundle-branch block. As noted, he did have a similar electrocardiogram on 09/15/2016. IMPRESSION: 1. Elevated troponin level, most likely this is due to a type 2 myocardial injury (demand ischemia). The patient does not show any clinical evidence to suggest an acute myocardial infarction. 2. Chronic left bundle-branch block. 3. Nonalcoholic steatohepatitis with cirrhosis. 4. Recurrent elevation in ammonia levels. 5. Type 2 diabetes mellitus, on insulin. 6. Essential hypertension. 7. Chronic kidney disease. PLAN: We will check an echocardiogram to assess left ventricular function and wall motion. If that is normal, I would not do any other cardiac workup at this time unless the patient were to develop symptoms of coronary artery disease. Risk factor modification would be appropriate as tolerated. [facility] Cardiology and I thank the hospitalist physicians for asking our advice regarding the patient's care. [place], [place] REPORT OF CONSULTATION NAME: SUZAN MARTIN UNIT #: [id number] ROOM: 415 DOCTOR: MEHRAN NEWMAN MD BIRTHDATE: [birth year] MEHRAN NEWMAN MD CM:CONSTR:REPORT OF CONSULTATION 1204 08/26/18 1400 interface
[2018-08-25 13:21] VITALS: BP 151/68
[2018-08-25 14:00] VITALS: BP 154/80
[2018-08-25 14:44] LABS: BASO % 0.4 % (0.0-1.0); EOS # 0.2 10*3/uL (0.0-0.4); EOS % 2.6 % (1.0-4.0); HEMATOCRIT 33.2 % (42.0-52.0); HEMOGLOBIN 11.6 g/dl (14.0-18.0); LYMPH # 1.1 10*3/uL (1.3-4.4); LYMPH % 13.3 % (27.0-41.0); MEAN CELL VOLUME 90.7 fl (80.0-94.0); MEAN CORPUSCULAR HGB 31.7 pg (27.0-31.0); MEAN CORPUSCULAR HGB CONC 34.9 g/dl (33.0-37.0); MEAN PLATELET VOLUME 11.8 fl (9.6-12.3); MONO # 0.7 10*3/uL (0.1-1.0); MONO % 8.6 % (3.0-9.0); NEUT % 74.5 % (47.0-73.0); PLATELET COUNT AUTOMATED 63 10*3/uL (130-400); RED BLOOD COUNT 3.66 10*6/uL (4.50-5.90); RED CELL DISTRI WIDTH 15.6 % (0-14.5); WHITE BLOOD COUNT 8.1 10*3/uL (4.8-10.8)
[2018-08-25 14:59] LABS: ACT PARTIAL THROMBO TIME 29.9 SECONDS (20.8-31.5); INTERNATIONAL NORM RATIO 1.2 (2.0-3.5)
[2018-08-25 15:04] LABS: ALBUMIN 2.8 gm/dl (3.1-4.5); CREATININE 1.52 mg/dL (0.70-1.30); POTASSIUM 4.2 mmol/L (3.5-5.1); TOTAL PROTEIN 7.5 gm/dL (6.4-8.2)
[2018-08-25 15:07] LABS: TROPONIN I 0.052 ng/ml (<0.045)
--- NOTE | 2018-08-25 15:08 | NUR ---
TRIPONIN @ 0.052,DR SORENSEN NOTIFIED.
[2018-08-25 15:45] LABS: BILIRUBIN NEGATIVE (NEGATIVE); BLOOD 3+ (NEGATIVE); CLARITY CLEAR (CLEAR); COLOR YELLOW (YELLOW); GLUCOSE NEGATIVE (NEGATIVE); KETONE NEGATIVE (NEGATIVE); LEUKO ESTERASE NEGATIVE (NEGATIVE); NITRITE NEGATIVE (NEGATIVE); PH 5.5 (5.0-9.0); SPECIFIC GRAVITY >= 1.030 (1.005-1.030); UROBILINOGEN 0.2 E.U./dl (0.2-1.0)
[2018-08-25 16:00] VITALS: BP 158/80
[2018-08-25 16:18] LABS: BACTERIA 1+; EPITHELIAL CELLS 0-2; HYALINE CAST 0-2; MUCOUS TRACE; WBC 0-2 wbc/hpf (0-5)
--- NOTE | 2018-08-25 17:00 | NUR ---
A 72, admitted to , under the services of TATE Nguyen DO with a diagnosis of INABILITY TO AMBULATE. Chief complaint is PAIN TO BACKAND RECTAL ABSCESS. Patient arrived via stretcher from ER. Monitor applied. Initial assessment completed. Vital signs taken and recorded. TATE NGUYEN DO notified of admission to the unit. Orders received. See assessment for past medical history, medications and allergies. Patient and/or family oriented to unit. [facility] visitation policy reviewed. Clothing/patient valuable form completed. ERASMO RODRIGUEZ
--- NOTE | 2018-08-25 19:10 | NUR ---
DR. RIOJAS NOTIFIED OF CONSULT AND WILL SEE THE PATIENT IN THE MORNING.
[2018-08-25 20:00] VITALS: BP 161/71
--- NOTE | 2018-08-25 20:36 | NUR ---
DR. TAY NOTIFIED OF CRITICAL TROPONIN OF 0.097. NO NEW ORDERS GIVEN AT THIS TIME.
--- NOTE | 2018-08-25 23:48 | NUR ---
DR. TAY NOTIFIED OF CRITICAL TROPONIN LEVEL OF 0.141. NO NEW ORDERS GIVEN AT THIS TIME
[2018-08-26] VITALS (10 sets, daily range): BP systolic 89–152; BP diastolic 56–90
--- NOTE | 2018-08-26 00:08 | NUR ---
DR. NEWMAN NOTIFIED OF CONSULT AND MADE AWARE OF ELEVATED TROPONIN LEVEL FROM 0.052 TO 0.141. NEW ORDER TO DRAW TROPONIN LEVEL IN THE MORNING. HE STATES HE WILL SEE THE PATIENT IN THE MORNING.
--- NOTE | 2018-08-26 04:00 | NUR ---
PT IS RESTING IN BED AT THIS TIME WITH NO SIGNS/SYMPTOMS OF PAIN OR DISTRESS. HE IS CURRENTLY NORMAL SINUS ON THE MONITOR WITH A HEARTRATE IN THE 70'S. RESPIRATIONS ARE EASY AND UNLABORED ON ROOM AIR. BED IS IN LOWEST POSITION AND CALL LIGHT IS WITHIN REACH. WILL CONTINUE TO MONITOR PT.
[2018-08-26 05:43] LABS: ALBUMIN 2.6 gm/dl (3.1-4.5); ALKALINE PHOSPHATASE 68 U/L (45-117); BUN 18 mg/dl (7-24); CHLORIDE 111 mmol/L (98-107); CHOLESTEROL 134 mg/dL (<200); CREATININE 1.39 mg/dL (0.70-1.30); HDL CHOLESTEROL 32 mg/dl (40-60); LDL CHOLESTEROL 76 mg/dL (9-159); PHOSPHOROUS 2.7 mg/dL (2.5-4.9); SGOT/AST 76 IU/L (3-35); SGPT/ALT 48 U/L (12-78); SODIUM 143 mmol/L (136-145); TOTAL PROTEIN 6.8 gm/dL (6.4-8.2); TRIGLYCERIDES 128 mg/dl (<150); VLDL CHOLESTEROL 26 mg/dL (6-40)
[2018-08-26 05:44] LABS: FREE T4 0.97 ng/dl (0.76-1.46)
[2018-08-26 05:47] LABS: TROPONIN I 0.135 ng/ml (<0.045)
--- NOTE | 2018-08-26 05:49 | NUR ---
DR. TAY NOTIFIED OF CRITICAL TROPONIN OF 0.135 WHICH IS DOWN FROM THE LAST TROPONIN LEVEL OF 0.141. NO NEW ORDERS GIVEN.
--- NOTE | 2018-08-26 06:03 | NUR ---
DR. TAY NOTIFIED OF CRITICAL AMMONIA LEVEL OF 77. NO NEW ORDERS GIVEN AT THIS TIME.
[2018-08-26 06:10] LABS: HEMOGLOBIN 10.3 g/dl (14.0-18.0); MEAN CELL VOLUME 91.2 fl (80.0-94.0); MEAN CORPUSCULAR HGB 31.3 pg (27.0-31.0); MEAN CORPUSCULAR HGB CONC 34.3 g/dl (33.0-37.0); MEAN PLATELET VOLUME 11.9 fl (9.6-12.3); PLATELET COUNT AUTOMATED 45 10*3/uL (130-400); RED BLOOD COUNT 3.29 10*6/uL (4.50-5.90); RED CELL DISTRI WIDTH 15.5 % (0-14.5)
[2018-08-26 07:08] LABS: BASOPHILS 1 % (0-1); PLATELET SUFFICIENCY LOW (NORMAL); TOTAL CELLS COUNTED 100 #CELLS
[2018-08-26 08:02] LABS: VITAMIN D, 25-HYDROXY 55.9 ng/mL (30-100)
--- NOTE | 2018-08-26 08:31 | NUR ---
SUZAN MARTIN [id number] Please refer to the physician's history and physical for past medical history, comorbid conditions, and allergies. Diagnosis: INABILITY TO AMBULATE DUE TO MULTIPLE JOINTS Facundo Score: 17,AT RISK WOUND DESCRIPTIONS: Location of the wound: left buttocks Thickness: Partial Size: 0.2cm x 0.2cm x 0.1cm Tunneling: none Undermining: none Sinus Tract: none Presence of Exudate: Purulent Amount: Moderate Color: Red Odor: Foul Periwound Skin Appearance: Erythema, firmness Wound edges: approximated Pain (associated with wound): tender to touch How does patient state this happened? pt stated it started a couple weeks ago Surface the patient is resting on: Isoflex SKIN PREVENTION RECOMMENDATION: 1. Pressure redistribution support surface as appropriate 2. Elevate heels 3. Remove boots/TEDS every shift and reapply 4. Head of bed 30 degrees as tolerated 5. Assess nutrition and hydration 6. Manage moisture 7. Avoid the use of containment devices while in bed 8. Use absorptive products on surfaces limit layers of linens on bed 9. Turn and reposition every 1-2 hours in bed and every 1 hour in chair as tolerated 10. Weight shifts every 15 minutes while up in chair 11. Offloading with pillows or device to keep heels elevated off bed 12. Monitor skin at least every shift 13. Inspect under medical devices twice a day WOUND TREATMENT RECOMMENDATIONS: Warm compress qid. Await wound care order per Dr. Green stating taking patient for I&D today. Patient is requesting to follow up in the wound care clinic upon discharge but stated needs to clear it with his so he knows a date and time.
--- NOTE | 2018-08-26 09:00 | NUR ---
Cerner Analyst in to talk to patient. Patient states lives at home with . There are few steps in the home. Physician: fady keith Pharmacy: [facility] health services: none Patient's level of ADLs: INDEPENDENT Patient has working utilities: all working DME: none Follow-up physician's appointment after d/c: will be made by hospitalist nurse director upon discharge Does patient want to access PORTAL?: no Discharge plan discussed with patient, patient lives at home with , is independent in adls and ambulation, patient states he will be going back home when able and denies any home needs, was present in the room when talking with patient and also denies any home needs. BENTLEY THOMASON
--- NOTE | 2018-08-26 09:23 | NUR ---
IN TO SEE PT.
--- NOTE | 2018-08-26 10:23 | NUR ---
Dr. Asher notified of wound care recommendations.
--- NOTE | 2018-08-26 13:01 | NUR ---
case management spoke to patient's daughters regarding discharge plan, daughters stated that they would like their dad to go to a short term jail for rehab prior to going back home. daughters stated that they would need some place close to [facility], due to their mother not being able to drive too far. daughters stated that they were going to go visit area facilities and then they would make their decision of which one to refer patient to, case management will follow
--- NOTE | 2018-08-26 13:56 | NUR ---
PT DOWN TO OR FOR PROCEDURE AT THIS TIME.
--- NOTE | 2018-08-26 14:58 | NUR ---
PHYSICAL THERAPY PAtient at surgery at this time. Will attempt at a later date. Thank you fopr this referral. Nicole Romo ,PT
--- NOTE | 2018-08-26 16:17 | NUR ---
NURSE TO NURS REPORT RECEIVED FROM SURGERY.
--- NOTE | 2018-08-26 16:26 | NUR ---
PT BACK TO ROOM FROM PROCEDURE.
--- NOTE | 2018-08-26 21:00 | NUR ---
PT CONTINENT OF LIGHT BROWN LIQUID STOOL. DRSG SATURATED W/BM. AREA CLEANSED W/NS AND ABD PAD APPLIED. BED LINENS AND GOWN CHANGED. WARM BLANKETS PLACED OVER PT FOR COFORT. CALL LIGHT IN REACH.
[2018-08-27] VITALS: BP 152/68
--- NOTE | 2018-08-27 03:03 | NUR ---
Patient has follow up appointment in the wound care center on 09/02/18 at 11:30am with Dr. Green.
[2018-08-27 05:47] LABS: BUN 18 mg/dl (7-24); CHLORIDE 111 mmol/L (98-107); CREATININE 1.27 mg/dL (0.70-1.30); POTASSIUM 3.9 mmol/L (3.5-5.1); SODIUM 141 mmol/L (136-145)
[2018-08-27 05:51] LABS: HEMATOCRIT 29.7 % (42.0-52.0); HEMOGLOBIN 10.2 g/dl (14.0-18.0); MEAN CELL VOLUME 91.4 fl (80.0-94.0); MEAN CORPUSCULAR HGB 31.4 pg (27.0-31.0); MEAN CORPUSCULAR HGB CONC 34.3 g/dl (33.0-37.0); MEAN PLATELET VOLUME 11.3 fl (9.6-12.3); PLATELET COUNT AUTOMATED 42 10*3/uL (130-400); RED BLOOD COUNT 3.25 10*6/uL (4.50-5.90); RED CELL DISTRI WIDTH 15.6 % (0-14.5); WHITE BLOOD COUNT 4.9 10*3/uL (4.8-10.8)
--- NOTE | 2018-08-27 05:57 | NUR ---
DR. HARDY NOTIFIED OF CRITICAL AMMONIA LEVEL OF 95. ADMINISTER 1000 LACTULOSE NOW.
[2018-08-27 06:26] LABS: TROPONIN I 0.064 ng/ml (<0.045)
[2018-08-27 06:28] LABS: PLATELET SUFFICIENCY LOW (NORMAL); POLYCHROMASIA SLIGHT; TOTAL CELLS COUNTED 100 #CELLS
--- NOTE | 2018-08-27 06:30 | NUR ---
DR. TAY NOTIFIED OF CRITICAL TROPONIN LEVEL 0.064. NO N.O. RCVD AT THIS TIME.
[2018-08-27 08:00] VITALS: BP 150/70
--- NOTE | 2018-08-27 09:00 | NUR ---
case management visits with patient, and daughter present, family wanted patient referred to [facility], [facility] [place] and [facility]. educated family that rehab suites and [facility] don't have any available beds, but they wanted the referral sent there anyway. strategic planner will send referrals to the three facilities. case management will follow
--- NOTE | 2018-08-27 10:30 | NUR ---
SUZAN MARTIN [id number] Please refer to the physician's history and physical for past medical history, comorbid conditions, and allergies. Diagnosis: INABILITY TO AMBULATE DUE TO MULTIPLE JOINTS Facundo Score: 17,AT RISK WOUND DESCRIPTIONS: Location of the wound: LEFT BUTTOCK Type of wound: ABSCESS Thickness: Full Size: 0.5cm X 0.9cm X 1.3cm Tunneling: NONE Undermining: NONE Sinus Tract: NONE Presence of Exudate: Sanguineous Amount: Light Color: Red Odor: None Periwound Skin Appearance: Erythema Wound edges: APPROXIMATED Pain (associated with wound): TENDER TO TOUCH How does patient state this happened? PATIENT UNSURE HOW THIS HAPPENED. PACKING CHANGED. PATIENT TOLERATED WELL. POST OP PHOTOS OBTAINED WITH PATIENT'S VERBAL CONSENT. Surface the patient is resting on: Position Pro SKIN PREVENTION RECOMMENDATION: 1. Pressure redistribution support surface as appropriate 2. Elevate heels 3. Remove boots/TEDS every shift and reapply 4. Head of bed 30 degrees as tolerated 5. Assess nutrition and hydration 6. Manage moisture 7. Avoid the use of containment devices while in bed 8. Use absorptive products on surfaces limit layers of linens on bed 9. Turn and reposition every 1-2 hours in bed and every 1 hour in chair as tolerated 10. Weight shifts every 15 minutes while up in chair 11. Offloading with pillows or device to keep heels elevated off bed 12. Monitor skin at least every shift 13. Inspect under medical devices twice a day WOUND TREATMENT RECOMMENDATIONS: CONTINUE CURRENT ORDERS.
[2018-08-27 12:00] VITALS: BP 128/55
--- NOTE | 2018-08-27 13:15 | NUR ---
PHYSICAL THERAPY PAtient on bed her. Nicole Romo,PT
--- NOTE | 2018-08-27 13:18 | NUR ---
Patient not available for Occupational Therapy evaluation as patient was on the bedpan. Basia Garg OTR/Kym
--- NOTE | 2018-08-27 13:27 | NUR ---
PHYSICAL THERAPY PAtient on bed her. Nicole Romo,PT
--- NOTE | 2018-08-27 13:27 | NUR ---
Patient not available for OT evaluation as patient continues to be on the bedpan. Basia Garg OTR/L
--- NOTE | 2018-08-27 13:33 | NUR ---
patient requested referrals to [facility]. [facility] 2. [facility] 3. [facility]. [facility] is currently full with a waiting list. There is a male bed opening at [facility], contacted facility and faxed initial referral, will fax physicial therapy eval when patient is appropriate to participate. Patient will require a 3 night stay; waiting on review/acceptance.
[2018-08-27 16:00] VITALS: BP 131/54
--- NOTE | 2018-08-27 16:16 | NUR ---
PT MEDICATED WITH NORCO AT THIS TIME PER ORDER FOR COMPLAINTS OF PAIN IN BACK AND BUTTOCKS. WILL MONITOR FOR EFFECTIVENESS.
--- NOTE | 2018-08-27 16:19 | NUR ---
Occupational Therapy evaluation completed on 4 with full eval to follow. Precautions include fall risk, unsteady, parkinsons disease, wh walker use. Patient is moderate complexity level 95444 via chart review, testing and evaluation. Recommend OT per pOC and SNF to enable return home with elderly . Thank you. Basia Garg OTR/l
--- NOTE | 2018-08-27 17:06 | NUR ---
PHYSICAL THERAPY PAtient evaluated on 4, full evaluation to follow. Continue with PT as per plan of care with fall, alarm and perianal abscess precaution. Will require SNF. Patient is high complexity via chart review, tests and evaluation: [id number]. Thank you for this referral. Nicole Romo,PT
--- NOTE | 2018-08-27 17:30 | NUR ---
PER PATIENT, PAIN MEDICATION HAS BEEN EFFECTIVE. NO FURTHER COMPLAINTS
[2018-08-27 20:00] VITALS: BP 136/58
[2018-08-28] VITALS: BP 129/57
--- NOTE | 2018-08-28 01:26 | NUR ---
24 HR chart check completed.
[2018-08-28 05:39] LABS: BUN 16 mg/dl (7-24); CHLORIDE 110 mmol/L (98-107); CREATININE 1.36 mg/dL (0.70-1.30); POTASSIUM 3.8 mmol/L (3.5-5.1); SODIUM 140 mmol/L (136-145); TROPONIN I 0.036 ng/ml (<0.045)
[2018-08-28 05:42] LABS: HEMATOCRIT 29.4 % (42.0-52.0); HEMOGLOBIN 9.9 g/dl (14.0-18.0); MEAN CELL VOLUME 92.2 fl (80.0-94.0); MEAN CORPUSCULAR HGB CONC 33.7 g/dl (33.0-37.0); MEAN PLATELET VOLUME 10.1 fl (9.6-12.3); PLATELET COUNT AUTOMATED 41 10*3/uL (130-400); RED BLOOD COUNT 3.19 10*6/uL (4.50-5.90); RED CELL DISTRI WIDTH 15.7 % (0-14.5)
--- NOTE | 2018-08-28 05:55 | NUR ---
DR TAY NOTIFIED OF CRITICAL AMMONIA LEVELOF 90.
[2018-08-28 06:26] LABS: BASOPHILS 1 % (0-1); TOTAL CELLS COUNTED 100 #CELLS
[2018-08-28 06:27] LABS: PLATELET SUFFICIENCY LOW (NORMAL)
[2018-08-28 08:00] VITALS: BP 113/48
--- NOTE | 2018-08-28 09:00 | NUR ---
case management visits with patient, patient will be [facility] prior to going home, corporate event planner working with patient and family inregards to a skilled facility
--- NOTE | 2018-08-28 11:08 | NUR ---
PHYSICAL THERAPY Nursing in with patient at present time. Will check back shortly. CRISSY ARREDONDO POSITIVE PRINTER OPERATOR
[2018-08-28 12:00] VITALS: BP 140/72
--- NOTE | 2018-08-28 13:17 | NUR ---
PHYSICAL THERAPY TIME : 11:15 AM Patient presented to therapy in supine with head of bed elevated at 11:15 PM with visiting in the room. Patient has report of decresing pain level in low back. Patient says she is feeling much better than yesterday. Patient agrees to therapy session. Patient was identified by name and . Patient transferred supine to sitting at EOB with MIN A X 1. Patient transferred STS with MIN A X 1 with verbal cues for pushing off bed with hands. Patient ambulated with W/W and CGA X 1 for 100' x 1 with V/Cs for upright posture. Patient transferred back to supine in bed with MIN A X 1. Patient was 1:1 with this PTAfor 18 minutes total. Patient was left in supine in bed with head of bed elevated, call light within reach, and bed alarm activated. Patient's visitor still in room as therapy session ended. CRISSY ARREDONDO HUMAN GEOGRAPHY INSTRUCTOR
[2018-08-28] MEDS ORDERED: CLINDAMYCIN HC300 MG PO (13:27)
[2018-08-28] MEDS ORDERED: HYDROCODONE-AC1 EAC1 PO (13:27)
[2018-08-28] MEDS ORDERED: LACTULOSE20 GM/30 M PO (13:27)
--- NOTE | 2018-08-28 14:02 | NUR ---
Patient is discharged to [facility], transportation scheduled for 3PM with [facility]. NH, snack stewardess and family notified.
--- NOTE | 2018-08-28 14:45 | NUR ---
PHYSICAL THERAPY PATIENT IS BEING DISCHARGED THIS AFTERNOON TO [facility]. CRISSY ARREDONDO PTA
--- NOTE | 2018-08-28 15:08 | NUR ---
Discharge instructions reviewed with patient/family. Patient receptive and verbalizes understanding. Follow-up care arranged. Written instructions given to patient/family. PATIENT TRANSFERRED TO [facility]. [place]OCK DISCONTINUED. WOUND PHOTO TAKEN. DISCHARGED BY [facility]. EFRAIN VARGAS
[2018-11-03] MEDS ORDERED: TYLENOL325 M2 PO (12:29)
[2018-11-03] MEDS ORDERED: MULTIVITAMINS1 EAC5 PO (12:34)
[2018-11-03] MEDS ORDERED: VITAMIN C500 M4 PO (12:34)
== END 2018-08-28 15:15 | disposition other institution (70) | DRG 344 ==
LOC: ED 13:15 → EDHOLD 15:44 → 4E 15:44 → EDHOLD 16:03 → 4E 16:35
PROVIDERS: Emergency Medicine; Internal Medicine; ADMIT Internal Medicine
PROC: 0D9P0ZZ Drainage of Rectum, Open Approach (ICD-10-PCS; principal; 2018-08-26)
DX: K61.1 Rectal abscess (principal); G93.41 Metabolic encephalopathy; E72.20 Disorder of urea cycle metabolism, unspecified; E44.0 Moderate protein-calorie malnutrition; M46.28 Osteomyelitis of vertebra, sacral and sacrococcygeal region; K72.90 Hepatic failure, unspecified without coma; E11.22 Type 2 diabetes mellitus with diabetic chronic kidney disease; E66.01 Morbid (severe) obesity due to excess calories; I12.9 Hypertensive chronic kidney disease with stage 1 through stage 4 chronic kidney disease, or unspecified chronic kidney disease; K21.9 Gastro-esophageal reflux disease without esophagitis; E03.9 Hypothyroidism, unspecified; E11.65 Type 2 diabetes mellitus with hyperglycemia; E87.8 Other disorders of electrolyte and fluid balance, not elsewhere classified; D69.6 Thrombocytopenia, unspecified; I44.7 Left bundle-branch block, unspecified; E55.9 Vitamin D deficiency, unspecified; K75.81 Nonalcoholic steatohepatitis (NASH); M47.816 Spondylosis without myelopathy or radiculopathy, lumbar region; D64.9 Anemia, unspecified; E11.69 Type 2 diabetes mellitus with other specified complication; L89.321 Pressure ulcer of left buttock, stage 1; N18.3 Chronic kidney disease, stage 3 (moderate); R26.2 Difficulty in walking, not elsewhere classified; K74.60 Unspecified cirrhosis of liver; G20 Parkinson's disease; Z86.73 Personal history of transient ischemic attack (TIA), and cerebral infarction without residual deficits; Z88.1 Allergy status to other antibiotic agents; Z88.8 Allergy status to other drugs, medicaments and biological substances; Z79.4 Long term (current) use of insulin; Z79.899 Other long term (current) drug therapy; Z85.038 Personal history of other malignant neoplasm of large intestine; Z98.41 Cataract extraction status, right eye; Z98.42 Cataract extraction status, left eye; Z82.49 Family history of ischemic heart disease and other diseases of the circulatory system; Z68.35 Body mass index [BMI] 35.0-35.9, adult

== ENCOUNTER 2018-08-31 07:20 | Inpatient (IN) | payer MEDICARE ==
[2018-08-31] VITALS (7 sets, daily range): BP systolic 100–150; BP diastolic 62–80
[~2018-08-31] VITALS: Ht 170.1 cm; Wt 103.9 kg
--- NOTE | ~2018-08-31 | EKG ---
[place], [place] ELECTROCARDIOGRAM REPORT NAME: SUZAN MARTIN UNIT #: [id number] ROOM: 520 DOCTOR: DIANE DRAFT REPORT BIRTHDATE: [address] [facility] Test Date: 2018-09-01 Test Time: 10:23:20 Pat Name: SUZAN MARTIN Department: Room: 520 1 Gender: M Manufacturing Technology Professor: Aleksandra Nath : 1945 Requested By: ALMITA DONAHUE Order Number: [id number] Reading MD: Almita Donahue MD Measurements Intervals [place] Rate: 62 P: 59 WA: 67 QRS: 0 QRSD: 160 T: 117 QT: 542 QTc: 551 Interpretive Statements Sinus rhythm Short WA interval IVCD, consider atypical LBBB Baseline wander in lead(s) III,V1,V4 Compared to ECG 08/31/2018 07:47:18 Short WA interval now present Ectopic atrial rhythm no longer present Electronically Signed On 09-01-2018 15:04:14 PST by Almita Donahue MD CM:EKGRPT:ELECTROCARDIOGRAM REPORT [id number] ALMITA DONAHUE MD EPIPHANY DRAFT REPORT ALMITA DONAHUE MD
--- NOTE | ~2018-08-31 | EKG ---
[place], [place] ELECTROCARDIOGRAM REPORT NAME: SUZAN MARTIN UNIT #: [id number] ROOM: DOCTOR: DIANE DRAFT REPORT BIRTHDATE: [birth year] [facility] Test Date: 2018-08-31 Test Time: 07:47:18 Pat Name: SUZAN MARTIN Department: Room: Gender: It Service Manager: : 1945 Requested By: KESHA SORENSEN Order Number: [id number] Reading MD: Measurements Intervals [place] Rate: 99 P: 267 PA: 184 QRS: -40 QRSD: 150 T: 105 QT: 391 QTc: 502 Interpretive Statements Sinus or ectopic atrial rhythm Left bundle branch block Compared to ECG 08/26/2018 00:11:08 Ectopic atrial rhythm now present Sinus rhythm no longer present First degree AV block no longer present CM:EKGRPT:ELECTROCARDIOGRAM REPORT [id number] KESHA CONTRERAS DRAFT REPORT KESHA SORENSEN MD
[~2018-08-31 07:20] MED LIST changes: +CLINDAMYCIN HC300 MG PO; +HYDROCODONE-AC1 EAC1 PO
[2018-08-31 07:55] LABS: BASO % 0.3 % (0.0-1.0); EOS # 0.2 10*3/uL (0.0-0.4); EOS % 2.4 % (1.0-4.0); HEMATOCRIT 35.1 % (42.0-52.0); HEMOGLOBIN 12.1 g/dl (14.0-18.0); LYMPH # 0.4 10*3/uL (1.3-4.4); LYMPH % 4.8 % (27.0-41.0); MEAN CELL VOLUME 92.4 fl (80.0-94.0); MEAN CORPUSCULAR HGB 31.8 pg (27.0-31.0); MEAN CORPUSCULAR HGB CONC 34.5 g/dl (33.0-37.0); MEAN PLATELET VOLUME 11.3 fl (9.6-12.3); MONO # 0.3 10*3/uL (0.1-1.0); MONO % 3.4 % (3.0-9.0); NEUT # 7.9 10*3/uL (2.3-7.9); NEUT % 88.6 % (47.0-73.0); PLATELET COUNT AUTOMATED 61 10*3/uL (130-400); RED CELL DISTRI WIDTH 16.5 % (0-14.5); WHITE BLOOD COUNT 8.9 10*3/uL (4.8-10.8)
[2018-08-31 08:04] LABS: ACT PARTIAL THROMBO TIME 29.1 SECONDS (20.8-31.5); INTERNATIONAL NORM RATIO 1.3 (2.0-3.5)
[2018-08-31 08:12] LABS: ALBUMIN 2.9 gm/dl (3.1-4.5); CREATININE 1.74 mg/dL (0.70-1.30); POTASSIUM 4.6 mmol/L (3.5-5.1); TOTAL PROTEIN 7.8 gm/dL (6.4-8.2)
[2018-08-31 08:20] LABS: TROPONIN I 0.049 ng/ml (<0.045)
[2018-08-31 08:29] LABS: BILIRUBIN NEGATIVE (NEGATIVE); BLOOD 3+ (NEGATIVE); CLARITY SL CLOUDY (CLEAR); COLOR YELLOW (YELLOW); GLUCOSE TRACE (NEGATIVE); KETONE NEGATIVE (NEGATIVE); LEUKO ESTERASE NEGATIVE (NEGATIVE); NITRITE NEGATIVE (NEGATIVE); PH 5.5 (5.0-9.0); SPECIFIC GRAVITY >= 1.030 (1.005-1.030); UROBILINOGEN 0.2 E.U./dl (0.2-1.0)
[2018-08-31 08:38] LABS: BACTERIA 1+; CALCIUM OXALATE CRYSTALS 1+
[2018-08-31 08:39] LABS: FINE GRANULAR CAST 15-20
--- NOTE | 2018-08-31 09:00 | NUR ---
PT HAD BM AND WAS CLEANSED AT THIS TIME. NEW BRIEF IN PLACE. PT IS STABLE AND READY FOR TRANSPORT TO INPATIENT ROOM
--- NOTE | 2018-08-31 09:31 | NUR ---
A 72, admitted to 5E, under the services of TATE Nguyen DO with a diagnosis of CAITLIN, ELEVATED TROPONIN, GENERALIZED WEAKNESS. Chief complaint is EMESIS X2. Patient arrived via ambulance from ER. Monitor applied. Initial assessment completed. Vital signs taken and recorded. TATE NGUYEN DO notified of admission to the unit. Orders received. See assessment for past medical history, medications and allergies. Patient and/or family oriented to unit. [facility] visitation policy reviewed. Clothing/patient valuable form completed. ZEFERINO BASILIO
--- NOTE | 2018-08-31 10:25 | NUR ---
DR PANDYA MADE AWARE OF CRITICAL LACTIC ACID LEVEL OF 3.9. ALSO INFORMED OF WOUND NOTED TO LEFT BUTTOCK. PT HAD ABSCESS OF PREVIOUS ADMISSION, WHICH WAS I&D PER ED RN.
--- NOTE | 2018-08-31 10:25 | NUR ---
LAVELLE PANDYA INFORMED OF LACTIC ACID LEVEL OF 3.9.
--- NOTE | 2018-08-31 11:45 | NUR ---
DR PANDYA INFORMED OF ELEVATED TROPONIN OF 0.078. ALSO MADE AWARE OF UPDATED MED REC.
--- NOTE | 2018-08-31 14:17 | NUR ---
DR PANDYA NOTIFIED OF CRITICAL TROPONIN OF 0.151.
--- NOTE | 2018-08-31 14:28 | NUR ---
DR DONAHUE'S ANSWERING SERVICE NOTIFIED OF NEW CONSULT.
--- NOTE | 2018-08-31 14:44 | NUR ---
CT PREP STARTED AT THIS TIME.
--- NOTE | 2018-08-31 15:51 | NUR ---
PT COMPLETED BOTTLE TWO OF CT PREP AT THIS TIME.
--- NOTE | 2018-08-31 16:18 | NUR ---
DR DONAHUE IN TO SEE PT AT THIS TIME.
--- NOTE | 2018-08-31 16:20 | NUR ---
PT OFF FLOOR FOR CT AT THIS TIME.
--- NOTE | 2018-08-31 17:11 | NUR ---
DR PANDYA MADE AWARE OF TROPONIN LEVEL OF 0.[address] DONAHUE'S CONSUTLATION FINDINGS, STATING HE BELIEVES ELEVATED TROPONIN IS RELATED TO SEPSIS.
--- NOTE | 2018-08-31 17:29 | NUR ---
DR DONAHUE MADE AWARE OF CRITICAL TROPONIN LEVEL OF 0.329. STATES NO MORE TROPONIN CHECKS ARE NECESSARY.
--- NOTE | 2018-08-31 17:35 | NUR ---
DR DONAHUE CALLED BACK REGARDING PT, ORDERS RECEIVED FOR ECHO IN AND TROPONIN FOR 0600.
--- NOTE | 2018-08-31 17:45 | NUR ---
MEDICATED WITH TYLENOL FOR FEVER OF 101.4. WILL MONITOR FOR EFFECTIVENESS.
[2018-09-01] VITALS: BP 133/67
[2018-09-01 06:23] LABS: BASO % 0.3 % (0.0-1.0); EOS % 0.6 % (1.0-4.0); HEMATOCRIT 29.7 % (42.0-52.0); HEMOGLOBIN 10.4 g/dl (14.0-18.0); LYMPH # 0.7 10*3/uL (1.3-4.4); LYMPH % 9.3 % (27.0-41.0); MEAN CELL VOLUME 91.1 fl (80.0-94.0); MEAN CORPUSCULAR HGB 31.9 pg (27.0-31.0); MEAN PLATELET VOLUME 9.3 fl (9.6-12.3); MONO # 0.6 10*3/uL (0.1-1.0); MONO % 8.7 % (3.0-9.0); NEUT # 5.6 10*3/uL (2.3-7.9); NEUT % 80.2 % (47.0-73.0); PLATELET COUNT AUTOMATED 52 10*3/uL (130-400); RED BLOOD COUNT 3.26 10*6/uL (4.50-5.90); RED CELL DISTRI WIDTH 16.5 % (0-14.5)
--- NOTE | 2018-09-01 06:44 | NUR ---
DR. DONAHUE AND DR. HILL NOTIFIED OF CRITICAL TROPONIN OF 0.499. NO N.O. RCVD AT THIS TIME.
[2018-09-01 06:48] LABS: INTERNATIONAL NORM RATIO 1.5 (2.0-3.5)
[2018-09-01 06:49] LABS: ALBUMIN 2.3 gm/dl (3.1-4.5); BUN 18 mg/dl (7-24); CHLORIDE 112 mmol/L (98-107); CHOLESTEROL 120 mg/dL (<200); PHOSPHOROUS 2.2 mg/dL (2.5-4.9); SGOT/AST 66 IU/L (3-35); SGPT/ALT 50 U/L (12-78); TOTAL PROTEIN 6.3 gm/dL (6.4-8.2); TRIGLYCERIDES 116 mg/dl (<150); VLDL CHOLESTEROL 23 mg/dL (6-40)
[2018-09-01 07:04] LABS: ALKALINE PHOSPHATASE 61 U/L (45-117); HDL CHOLESTEROL 28 mg/dl (40-60); LDL CHOLESTEROL 69 mg/dL (9-159)
[2018-09-01 07:12] LABS: SODIUM 142 mmol/L (136-145)
[2018-09-01 07:45] LABS: POTASSIUM 3.5 mmol/L (3.5-5.1)
--- NOTE | 2018-09-01 07:58 | NUR ---
PHYSICAL THERAPY Nursing screen noted. PT orders also recieved. Thank you. Nicole Romo,PT
[2018-09-01 08:16] LABS: PHENOBARBITAL (LUMINAL) 2.6 ug/ml (15-40)
[2018-09-01 08:30] VITALS: BP 124/60
--- NOTE | 2018-09-01 09:28 | NUR ---
Patient comes from [facility] short term; he is ok to return when medically stable for discharge.
--- NOTE | 2018-09-01 10:33 | NUR ---
PHYSICAL THERAPY 10:33 am Nursing with patient. 10:50 am PAtient having ECHO. Thank you for this referral. Nicole Romo,PT
[2018-09-01 11:24] LABS: BILIRUBIN NEGATIVE (NEGATIVE); BLOOD 3+ (NEGATIVE); COLOR YELLOW (YELLOW); GLUCOSE TRACE (NEGATIVE); KETONE NEGATIVE (NEGATIVE); LEUKO ESTERASE TRACE (NEGATIVE); NITRITE NEGATIVE (NEGATIVE); PH 5.5 (5.0-9.0); SPECIFIC GRAVITY >= 1.030 (1.005-1.030); UROBILINOGEN 0.2 E.U./dl (0.2-1.0)
[2018-09-01 11:36] LABS: BACTERIA TRACE; CLARITY SL CLOUDY (CLEAR); FINE GRANULAR CAST 30-40; RBC 21-30 rbc/hpf (0-2)
[2018-09-01 12:00] VITALS: BP 117/56
--- NOTE | 2018-09-01 12:27 | NUR ---
PT IS SHORT TERM CARE AT [facility] AND PLANS TO GO BACK ON DISCHARGE TO COMPLETE HIS THERAPY. WILL CONTINUE TO FOLLOW.
--- NOTE | 2018-09-01 13:09 | NUR ---
SUZAN MARTIN [id number] Please refer to the physician's history and physical for past medical history, comorbid conditions, and allergies. Diagnosis: CAITLIN SIRS GENERALIZED WEAKNESS DEHYDRATION Facundo Score: 14,MODERATE RISK WOUND DESCRIPTIONS: Location of the wound: left buttocks Type of wound: surgical Thickness: Full Size: 0.4cm x 0.6cm x 0.7cm Tunneling: nopne Undermining: none Sinus Tract: none Presence of Exudate: Serosanguineous Amount: Light Color: Yellow, red Odor: None Periwound Skin Appearance: Erythema Wound edges: approximated Pain (associated with wound): tender to touch How does patient state this happened? pt stated he had surgery last week with Dr. Green 08/26/18. Surface the patient is resting on: Isoflex SKIN PREVENTION RECOMMENDATION: 1. Pressure redistribution support surface as appropriate 2. Elevate heels 3. Remove boots/TEDS every shift and reapply 4. Head of bed 30 degrees as tolerated 5. Assess nutrition and hydration 6. Manage moisture 7. Avoid the use of containment devices while in bed 8. Use absorptive products on surfaces limit layers of linens on bed 9. Turn and reposition every 1-2 hours in bed and every 1 hour in chair as tolerated 10. Weight shifts every 15 minutes while up in chair 11. Offloading with pillows or device to keep heels elevated off bed 12. Monitor skin at least every shift 13. Inspect under medical devices twice a day WOUND TREATMENT RECOMMENDATIONS: Full thickness guidelines: Cleanse left buttocks with nss and apply sureprep around the wound therahoney to wound bed and lightly pack with aquacel rope ag daily and prn for soiling. Wheelchair cushion when oob. Heel raiser pro boots while in bed. Recommend follow up for wound care in outpatient setting patient being discharge to another facility at this time.
--- NOTE | 2018-09-01 13:38 | NUR ---
Dr. Hawkins notified of wound care recommendations.
--- NOTE | 2018-09-01 14:45 | NUR ---
PHYSICAL THERAPY PAtient on bedpan. Nicole Romo,PT
[2018-09-01 15:40] LABS: POTASSIUM 4.2 mmol/L (3.5-5.1)
[2018-09-01 16:00] VITALS: BP 135/63
--- NOTE | 2018-09-01 16:24 | NUR ---
PHYSICAL THERAPY PAtient evaluated on 5, full evaluation to follow. Continue with PT as peR plan of care with fall and alarm precautions, WiLl requiRe return to SNF. PAtient is moderATE COMPELXITY VIA CHART REVIEW, TESTS AND EVALUATION; [id number]. THANK YOU FOR THIS REFERRAL. BERTRAND GARCIA,PT
--- NOTE | 2018-09-01 16:43 | NUR ---
Occupational Therapy evaluation completed on 5 with full eval to follow. Precautions include fall risk; bed alarm, ww use,mod/max assist for transfers, rigid posture with forward neck/head. Patient is high complexity level 13818 via chart review, testing and evaluation. Recommend OT per pOC and SNF upon d/c to enable return home with at [facility]. Thank you for this referral. Basia Garg OTR/l
--- NOTE | 2018-09-01 19:30 | NUR ---
PT AWAKE IN BED ON BEDPAN DURING BEDSIDE SHIFT REPORT. PT STATES HE IS NOT FINISHED MOVING HIS BOWELS YET. CALL LIGHT IN HAND.
[2018-09-01 20:00] VITALS: BP 132/67
--- NOTE | 2018-09-01 22:05 | NUR ---
PT REFUSING HIS SNACK AT THIS TIME. WILL OFFER LATER.
[2018-09-02] VITALS: BP 130/63
--- NOTE | 2018-09-02 | NUR ---
SLEEPING, AWAKENS EASILY BUT DROWSY. RESPIRATIONS EASY. LUBGS DIMINISHED, CLEAR. PULSE OX 97% RA. ABD SOFT WITH HYPERACTIVE BOWEL SOUNDS. ASSISTED TO BATHROOM, LOOSE BM D/T LACTULOSE. TEDS/SCDS IN PLACE. IV FLUIDS MAINTAINED. CALL LIGHT WITHIN REACH. NO VOICED COMPLAINTS. BED ALARM MAINTAINED FOR SAFETY
--- NOTE | 2018-09-02 05:00 | NUR ---
24 HR chart check completed.
--- NOTE | 2018-09-02 06:00 | NUR ---
SLEPT THROUGHOUT NIGHT WITH NO DISTRESS NOTED. RESPIRATIONS EASY. IV FLUIDS MAINTAINED. CALL LIGHT WITHIN REACH. NO VOICED COMPLAINTS THIS SHIFT
[2018-09-02 06:54] LABS: CREATININE 1.42 mg/dL (0.70-1.30); POTASSIUM 4.1 mmol/L (3.5-5.1)
[2018-09-02 08:00] VITALS: BP 128/66
--- NOTE | 2018-09-02 08:13 | NUR ---
DR. HILL IN TO SEE PATIENT AT THIS TIME. SKATE HOP DISCONTINUED AND IV FLUIDS DISCONTINUED AT THIS TIME PER DR. DUNHAM. PATIENT STATES HE FEELS A LOT BETTER TODAY
--- NOTE | 2018-09-02 09:16 | NUR ---
PHYSICAL THERAPY Patient seen this am 1:1 for therapy visit and was supine in bed upon therapist arrival. Patient voices no c/o's pain and transfers supine to sit EOB with MOD A x 1. Patient tolerates static EOB sit x 3 minutes prior to sit to stand transfer, Min A x 1 and completed SPT to bedside chair Min A, use of wh walker support. Patient able to perform seated B LE, therex, all planes, x 15 reps each and remained in chair with call light, tray table, telephone and body alarm for safety. Will continue per POC as tolerated, total treatment time 17 minutes. Ancelmo Tejeda, FILLING WINDER
--- NOTE | 2018-09-02 10:12 | NUR ---
DR. HILL CALLED AT THIS TIME AND MADE AWARE OF CRITICAL AMMONIA LEVEL OF 64. NO NEW ORDERS RECIEVED.
--- NOTE | 2018-09-02 10:35 | NUR ---
OT NOTE Pt was seen this A.M. 1:1 for 16 minute OT session. Upon arrival pt was sitting upright in recliner, pt identified by name and . Pt had no complaints at this time. Pt completed sit to stand transfer from chair level with Natalya and education on proper hand placement for increased I. Functional mobility completed into the bathroom with CGA and use of w/w for UE support, pt had two LOB that occured to side that required Natalya to correct. Educated pt throughout on walker safety due to staying far away increasing risk of falls. Pt transferred onto standard commode with Natalya due to poor safety with alignment, clothing management completed with modA, and toilet hygiene completed with Natalya. Pt transferred off standard commode with Natalya and use of grab bar. Pt then stood sink side while washing his hands with CGA, pt had LOB backwards when standing without UE support that required Natalya to correct. Pt was able to tolerate aprox 2 minutes of standing before sitting due to fatigue. Pt returned to recliner with CGA and use of w/w with continued verbal prompts for walker safety. Pt was left sitting upright in recliner with call light in hand, tray table in place, and body alarm activated for safety. Continue with rec D/C plan to SNF. KATELYNN Hooper/Kym
[2018-09-02 12:00] VITALS: BP 115/48
[2018-09-02] MEDS ORDERED: HYDROCODONE-AC1 EAC1 PO ×2 (12:08→12:09)
--- NOTE | 2018-09-02 12:45 | NUR ---
PHYSICAL THERAPY Patient seen this pm 1:1 for therapy visit and was still sitting up in bedside chair upon therapist arrival. Patient voices no new c/o's since earlier session and transfers sit to stand with MIN A. Patient ambulates with use of wh walker, 20'x 2, Min/CGA, demonstrating uneven stride with slow abdoulaye. Patient needed v/c for increased walker safety / navigation, especially during 180 degree turns secondary to unsteady gait pattern. Patient returned to bedside chair with mild fatigue and remained with call light, tray table, telephone and body alarm for safety. Will continue per POC as tolerated, total treatment time 15 minutes. Ancelmo Tejeda, TILE SORTER
--- NOTE | 2018-09-02 12:58 | NUR ---
patient is discharged back to [facility], updated clinicals and therapy all faxed for review. Transportation scheduled for 3PM with [place], nursing notified; Left message on number listed for patients .
--- NOTE | 2018-09-02 14:57 | NUR ---
REPORT GIVEN TO RN RECIEVING PATIENT AT THIS TIME. AMBULANCE HERE TO [facility] PATIENT.
--- NOTE | 2018-09-02 15:00 | NUR ---
Discharge instructions reviewed with patient/family. Patient receptive and verbalizes understanding. Follow-up care arranged. Written instructions given to patient/family. patient discharged pack to [facility] at this time. iv removed, patient tolerated well. family at bedside with patient at this time. recieving rn aware of patients discharge. all belongings with patient at this time. no concerns or needs voiced at this time. BHARTI [place]
--- NOTE | 2018-09-03 07:18 | NUR ---
PHYSICAL THERAPY CO-SIGN I approve of the Phyical Therapy notes written above. BERTRAND GARCIA PT
--- NOTE | 2018-09-03 07:50 | NUR ---
OCCUPATIONAL THERAPY CO-SIGN I approve of the Occupational Therapy notes written above. CALVIN COFFMAN OTR/Kym
[2018-11-03] MEDS ORDERED: TYLENOL325 M2 PO (12:29)
[2018-11-03] MEDS ORDERED: VITAMIN C500 M4 PO (12:34)
[2018-11-03] MEDS ORDERED: MULTIVITAMINS1 EAC5 PO (12:34)
[2018-11-06] MEDS ORDERED: LACTULOSE20 GM/30 M PO (10:16)
[2018-11-06] MEDS ORDERED: XIFAXAN550 MG PO (10:16)
[2019-01-07] MEDS ORDERED: MAGNESIUM OXID400 MG PO (08:40)
== END 2018-09-02 14:57 | disposition other institution (70) | DRG 871 ==
LOC: ED 07:20 → EDHOLD 08:37 → 5E 08:37
PROVIDERS: Emergency Medicine; Internal Medicine Cardiovascular Disease; Student in an Organized Health Care Education/Training Program; ADMIT Internal Medicine
DX: A41.9 Sepsis, unspecified organism (principal); N17.0 Acute kidney failure with tubular necrosis; G93.41 Metabolic encephalopathy; E44.0 Moderate protein-calorie malnutrition; E72.20 Disorder of urea cycle metabolism, unspecified; K52.9 Noninfective gastroenteritis and colitis, unspecified; G20 Parkinson's disease; M47.816 Spondylosis without myelopathy or radiculopathy, lumbar region; D69.6 Thrombocytopenia, unspecified; R26.2 Difficulty in walking, not elsewhere classified; E03.9 Hypothyroidism, unspecified; I44.7 Left bundle-branch block, unspecified; K21.9 Gastro-esophageal reflux disease without esophagitis; K74.60 Unspecified cirrhosis of liver; K72.90 Hepatic failure, unspecified without coma; K44.9 Diaphragmatic hernia without obstruction or gangrene; E87.6 Hypokalemia; K76.0 Fatty (change of) liver, not elsewhere classified; E86.0 Dehydration; I25.10 Atherosclerotic heart disease of native coronary artery without angina pectoris; E66.01 Morbid (severe) obesity due to excess calories; R74.0 Nonspecific elevation of levels of transaminase and lactic acid dehydrogenase [LDH]; E83.42 Hypomagnesemia; D64.9 Anemia, unspecified; E11.22 Type 2 diabetes mellitus with diabetic chronic kidney disease; I12.9 Hypertensive chronic kidney disease with stage 1 through stage 4 chronic kidney disease, or unspecified chronic kidney disease; N18.3 Chronic kidney disease, stage 3 (moderate); Z79.4 Long term (current) use of insulin; Z85.038 Personal history of other malignant neoplasm of large intestine; Z90.49 Acquired absence of other specified parts of digestive tract; Z88.1 Allergy status to other antibiotic agents; Z91.81 History of falling; Z87.442 Personal history of urinary calculi; Z82.49 Family history of ischemic heart disease and other diseases of the circulatory system; Z79.899 Other long term (current) drug therapy; Z79.84 Long term (current) use of oral hypoglycemic drugs; Z68.35 Body mass index [BMI] 35.0-35.9, adult

== ENCOUNTER 2018-09-11 15:10 | Emergency (ER) | payer MEDICARE ==
[~2018-09-11] VITALS: Ht 170.1 cm; Wt 104.3 kg
[2018-09-11] MEDS ORDERED: CEPHALEXIN500 M1 PO (15:58)
[2018-11-03] MEDS ORDERED: TYLENOL325 M2 PO (12:29)
[2018-11-03] MEDS ORDERED: VITAMIN C500 M4 PO (12:34)
[2018-11-03] MEDS ORDERED: MULTIVITAMINS1 EAC5 PO (12:34)
[2018-11-06] MEDS ORDERED: LACTULOSE20 GM/30 M PO (10:16)
[2018-11-06] MEDS ORDERED: XIFAXAN550 MG PO (10:16)
== END 2018-09-11 16:01 | disposition home or self-care (01) ==
LOC: ED 15:10
DX: L02.214 Cutaneous abscess of groin (principal); R79.89 Other specified abnormal findings of blood chemistry; E66.9 Obesity, unspecified; K21.9 Gastro-esophageal reflux disease without esophagitis; E03.9 Hypothyroidism, unspecified; E11.22 Type 2 diabetes mellitus with diabetic chronic kidney disease; I12.9 Hypertensive chronic kidney disease with stage 1 through stage 4 chronic kidney disease, or unspecified chronic kidney disease; N18.3 Chronic kidney disease, stage 3 (moderate); I25.10 Atherosclerotic heart disease of native coronary artery without angina pectoris; Z90.49 Acquired absence of other specified parts of digestive tract; Z88.1 Allergy status to other antibiotic agents; Z79.4 Long term (current) use of insulin; Z79.84 Long term (current) use of oral hypoglycemic drugs; Z79.899 Other long term (current) drug therapy; Z85.038 Personal history of other malignant neoplasm of large intestine

== ENCOUNTER 2019-02-20 05:13 | Inpatient (IN) | payer MEDICARE ==
[2019-02-20] VITALS (7 sets, daily range): BP systolic 99–136; BP diastolic 30–68
[~2019-02-20] VITALS: Ht 170.2 cm; Wt 91.3 kg
--- NOTE | ~2019-02-20 | EKG ---
[place], [place] ELECTROCARDIOGRAM REPORT NAME: SUZAN MARTIN UNIT #: [id number] ROOM: 524 DOCTOR: DIANE DRAFT REPORT BIRTHDATE: [address] [facility] Test Date: 2019-02-20 Test Time: 07:23:23 Pat Name: SUZAN MARTIN Department: Room: 524 Gender: M Vp Hr Diversity: Aleksandra Nath : 1945 Requested By: KESHA SORENSEN Order Number: [id number] Reading MD: Gutierrez Winkler MD Measurements Intervals [place] Rate: 81 P: 58 CO: 241 QRS: -37 QRSD: 154 T: 104 QT: 417 QTc: 484 Interpretive Statements Sinus rhythm Prolonged [place] interval Left bundle branch block Baseline wander in lead(s) V1,V2,V3,V4,V5,V6 Compared to ECG 01/04/2019 16:22:41 First degree AV block now present Ectopic atrial rhythm no longer present Short CO interval no longer present Electronically Signed On 02-20-2019 9:13:14 PDT by Gutierrez Winkler MD CM:EKGRPT:ELECTROCARDIOGRAM REPORT [id number] KESHA CONTRERAS DRAFT REPORT KESHA SORENSEN MD
[~2019-02-20 05:13] MED LIST changes: +CEPHALEXIN500 M1 PO; +MAGNESIUM OXID400 MG PO; +MULTIVITAMINS1 EAC5 PO; +TYLENOL325 M2 PO; +VITAMIN C500 M4 PO
[2019-02-20 07:36] LABS: HEMATOCRIT 28.7 % (42.0-52.0); HEMOGLOBIN 9.7 g/dl (14.0-18.0); MEAN CELL VOLUME 93.8 fl (80.0-94.0); MEAN CORPUSCULAR HGB 31.7 pg (27.0-31.0); MEAN CORPUSCULAR HGB CONC 33.8 g/dl (33.0-37.0); MEAN PLATELET VOLUME 9.2 fl (9.6-12.3); PLATELET COUNT AUTOMATED 42 10*3/uL (130-400); RED BLOOD COUNT 3.06 10*6/uL (4.50-5.90); RED CELL DISTRI WIDTH 15.6 % (0-14.5); WHITE BLOOD COUNT 6.7 10*3/uL (4.8-10.8)
[2019-02-20 07:44] LABS: ACT PARTIAL THROMBO TIME 33.3 SECONDS (20.0-32.1); INTERNATIONAL NORM RATIO 1.2 (2.0-3.5)
[2019-02-20 07:47] LABS: ALBUMIN 3.1 gm/dl (3.1-4.5); CREATININE 1.93 mg/dL (0.70-1.30); POTASSIUM 4.9 mmol/L (3.5-5.1); TOTAL PROTEIN 7.9 gm/dL (6.4-8.2)
[2019-02-20 07:57] LABS: PLATELET SUFFICIENCY LOW (NORMAL); TOTAL CELLS COUNTED 100 #CELLS
[2019-02-20 07:58] LABS: ROULEAUX SLIGHT
[2019-02-20 08:01] LABS: BILIRUBIN NEGATIVE (NEGATIVE); BLOOD 1+ (NEGATIVE); CLARITY SL CLOUDY (CLEAR); COLOR YELLOW (YELLOW); GLUCOSE NEGATIVE (NEGATIVE); KETONE NEGATIVE (NEGATIVE); LEUKO ESTERASE NEGATIVE (NEGATIVE); NITRITE NEGATIVE (NEGATIVE); PH 5.5 (5.0-9.0); UROBILINOGEN 0.2 E.U./dl (0.2-1.0)
[2019-02-20 08:07] LABS: BACTERIA 2+; HYALINE CAST 20-25; RBC 16-20 rbc/hpf (0-2)
[2019-02-20] MEDS ORDERED: CONSTULOSE10 GM/151 PO (10:04)
[2019-02-20] MEDS ORDERED: ZESTRIL5 MG PO (10:05)
[2019-02-20] MEDS ORDERED: LEVEMIR100 UNIT/1 SC (10:08)
[2019-02-20] MEDS ORDERED: ALLOPURINOL100 MG PO (10:09)
[2019-02-21] VITALS: BP 124/53
[2019-02-21 06:47] LABS: HEMATOCRIT 26.8 % (42.0-52.0); MEAN CELL VOLUME 93.7 fl (80.0-94.0); MEAN CORPUSCULAR HGB 31.5 pg (27.0-31.0); MEAN CORPUSCULAR HGB CONC 33.6 g/dl (33.0-37.0); MEAN PLATELET VOLUME 11.9 fl (9.6-12.3); PLATELET COUNT AUTOMATED 39 10*3/uL (130-400); RED BLOOD COUNT 2.86 10*6/uL (4.50-5.90); RED CELL DISTRI WIDTH 15.5 % (0-14.5); WHITE BLOOD COUNT 6.1 10*3/uL (4.8-10.8)
[2019-02-21 07:03] LABS: ALBUMIN 2.9 gm/dl (3.1-4.5); CREATININE 1.71 mg/dL (0.70-1.30); FREE T4 1.01 ng/dl (0.76-1.46); PHOSPHOROUS 3.2 mg/dL (2.5-4.9); POTASSIUM 4.7 mmol/L (3.5-5.1); TOTAL PROTEIN 7.2 gm/dL (6.4-8.2)
[2019-02-21 07:06] LABS: ACT PARTIAL THROMBO TIME 34.3 SECONDS (20.0-32.1); INTERNATIONAL NORM RATIO 1.3 (2.0-3.5)
[2019-02-21 07:07] LABS: THYROID STIM HORMONE (HS) 0.357 uIU/ml (0.358-4.75)
[2019-02-21 07:14] LABS: PLATELET SUFFICIENCY LOW (NORMAL); TOTAL CELLS COUNTED 100 #CELLS
[2019-02-21 07:15] LABS: ROULEAUX SLIGHT; SCHISTOCYTES FEW
[2019-02-21 07:49] LABS: VITAMIN D, 25-HYDROXY 53.9 ng/mL (30-100)
[2019-02-21 12:00] VITALS: BP 115/51
[2019-02-21 16:00] VITALS: BP 137/62
[2019-02-21 20:00] VITALS: BP 112/49
[2019-02-22] VITALS: BP 124/56
[2019-02-22 04:00] VITALS: BP 110/54
[2019-02-22 06:12] LABS: HEMATOCRIT 26.4 % (42.0-52.0); MEAN CORPUSCULAR HGB CONC 34.1 g/dl (33.0-37.0); MEAN PLATELET VOLUME 10.3 fl (9.6-12.3); PLATELET COUNT AUTOMATED 38 10*3/uL (130-400); RED BLOOD COUNT 2.81 10*6/uL (4.50-5.90); RED CELL DISTRI WIDTH 15.4 % (0-14.5); WHITE BLOOD COUNT 4.9 10*3/uL (4.8-10.8)
[2019-02-22 06:37] LABS: POTASSIUM 4.8 mmol/L (3.5-5.1)
[2019-02-22 06:44] LABS: ALBUMIN 2.9 gm/dl (3.1-4.5); CREATININE 1.8 mg/dL (0.70-1.30); TOTAL PROTEIN 7.4 gm/dL (6.4-8.2)
[2019-02-22 06:56] LABS: PLATELET SUFFICIENCY LOW (NORMAL); SCHISTOCYTES FEW; TOTAL CELLS COUNTED 100 #CELLS
[2019-02-22 06:57] LABS: ROULEAUX SLIGHT
[2019-02-22 08:00] VITALS: BP 116/60
[2019-02-22 12:00] VITALS: BP 105/50
[2019-02-22 16:00] VITALS: BP 110/64
[2019-02-22 20:00] VITALS: BP 114/50
[2019-02-23] VITALS: BP 116/54
[2019-02-23 04:30] VITALS: BP 118/62
[2019-02-23 06:27] LABS: CREATININE 1.79 mg/dL (0.70-1.30); POTASSIUM 4.5 mmol/L (3.5-5.1)
[2019-02-23 08:00] VITALS: BP 123/59
[2019-02-23 12:00] VITALS: BP 122/54
[2019-02-23 16:00] VITALS: BP 100/74
[2019-02-23 20:00] VITALS: BP 102/54
[2019-02-24] VITALS: BP 131/59
[2019-02-24 08:00] VITALS: BP 110/50
[2019-02-24] MEDS ORDERED: CEFUROXIME AXE250 MG PO (10:35)
[2019-02-24 12:00] VITALS: BP 111/51
== END 2019-02-24 12:40 | disposition home health service (06) | DRG 441 ==
LOC: ED 05:13 → 5E 07:55 → EDHOLD 07:55 → 5E 08:10
PROVIDERS: Emergency Medicine; Internal Medicine; ADMIT Family Medicine
DX: K72.00 Acute and subacute hepatic failure without coma (principal); N17.0 Acute kidney failure with tubular necrosis; E87.2 Acidosis; E44.0 Moderate protein-calorie malnutrition; N39.0 Urinary tract infection, site not specified; E86.0 Dehydration; E11.65 Type 2 diabetes mellitus with hyperglycemia; I12.9 Hypertensive chronic kidney disease with stage 1 through stage 4 chronic kidney disease, or unspecified chronic kidney disease; N18.3 Chronic kidney disease, stage 3 (moderate); G20 Parkinson's disease; E55.9 Vitamin D deficiency, unspecified; E03.9 Hypothyroidism, unspecified; M19.072 Primary osteoarthritis, left ankle and foot; M19.071 Primary osteoarthritis, right ankle and foot; K21.9 Gastro-esophageal reflux disease without esophagitis; K76.0 Fatty (change of) liver, not elsewhere classified; D64.9 Anemia, unspecified; D69.6 Thrombocytopenia, unspecified; B96.1 Klebsiella pneumoniae [K. pneumoniae] as the cause of diseases classified elsewhere; B96.89 Other specified bacterial agents as the cause of diseases classified elsewhere; M47.896 Other spondylosis, lumbar region; R74.8 Abnormal levels of other serum enzymes; R26.2 Difficulty in walking, not elsewhere classified; E66.9 Obesity, unspecified; M1A.9XX0 Chronic gout, unspecified, without tophus (tophi); R74.0 Nonspecific elevation of levels of transaminase and lactic acid dehydrogenase [LDH]; K74.60 Unspecified cirrhosis of liver; W01.0XXA Fall on same level from slipping, tripping and stumbling without subsequent striking against object, initial encounter; Z90.49 Acquired absence of other specified parts of digestive tract; Z82.49 Family history of ischemic heart disease and other diseases of the circulatory system; Z88.1 Allergy status to other antibiotic agents; Z79.899 Other long term (current) drug therapy; Y93.89 Activity, other specified; Y92.098 Other place in other non-institutional residence as the place of occurrence of the external cause; Y99.8 Other external cause status; S01.01XS Laceration without foreign body of scalp, sequela; Z79.4 Long term (current) use of insulin; Z85.038 Personal history of other malignant neoplasm of large intestine; Z91.81 History of falling; Z87.442 Personal history of urinary calculi; Z87.440 Personal history of urinary (tract) infections; Z68.31 Body mass index [BMI] 31.0-31.9, adult

== ENCOUNTER 2019-09-14 11:02 | Inpatient (IN) | payer OTHER, MEDICARE ==
[~2019-09-14] VITALS: Ht 182.8 cm; Wt 86.2 kg
[~2019-09-14 11:02] MED LIST changes: +ALLOPURINOL100 MG PO; +CEFUROXIME AXE250 MG PO; +ZESTRIL5 MG PO
[2019-09-14 11:10] VITALS: BP 161/89
[2019-09-14 11:41] VITALS: BP 165/87
[2019-09-14 11:56] LABS: BASO # 0.1 10*3/uL (0.0-0.1); BASO % 0.7 % (0.0-1.0); EOS # 0.4 10*3/uL (0.0-0.4); EOS % 4.6 % (1.0-4.0); HEMATOCRIT 33.8 % (42.0-52.0); HEMOGLOBIN 11.8 g/dl (14.0-18.0); LYMPH # 2.2 10*3/uL (1.3-4.4); LYMPH % 24.6 % (27.0-41.0); MEAN CELL VOLUME 88.5 fl (80.0-94.0); MEAN CORPUSCULAR HGB 30.9 pg (27.0-31.0); MEAN CORPUSCULAR HGB CONC 34.9 g/dl (33.0-37.0); MEAN PLATELET VOLUME 10.8 fl (9.6-12.3); MONO # 0.5 10*3/uL (0.1-1.0); MONO % 5.4 % (3.0-9.0); NEUT # 5.8 10*3/uL (2.3-7.9); NEUT % 64.3 % (47.0-73.0); PLATELET COUNT AUTOMATED 63 10*3/uL (130-400); RED BLOOD COUNT 3.82 10*6/uL (4.50-5.90); RED CELL DISTRI WIDTH 15.9 % (0-14.5); WHITE BLOOD COUNT 8.9 10*3/uL (4.8-10.8)
[2019-09-14 12:05] LABS: ACT PARTIAL THROMBO TIME 31.7 SECONDS (20.0-32.1); INTERNATIONAL NORM RATIO 1.3 (2.0-3.5)
[2019-09-14 12:12] LABS: ALBUMIN 2.9 gm/dl (3.1-4.5); CREATININE 1.53 mg/dL (0.70-1.30); TOTAL PROTEIN 7.4 gm/dL (6.4-8.2); TROPONIN I 0.041 ng/ml (<0.045)
[2019-09-14 12:13] LABS: POTASSIUM 3.9 mmol/L (3.5-5.1)
--- NOTE | 2019-09-14 12:18 | NUR ---
CRITICAL LAB AMMONIA [address] DR SORENSEN NOTIFIED
--- NOTE | 2019-09-14 12:49 | NUR ---
FAMILY AT BEDSIDE PT AIRWAY ORAL SUCTIONED CLEAR MUCUS REMOVED PULSE OX 99% 15LPM NRB MASK
--- NOTE | 2019-09-14 13:46 | NUR ---
HOSPICE AT PT BEDSIDE WITH FAMILY PRESENT
--- NOTE | 2019-09-14 14:59 | NUR ---
HOSPICETime: 1445 A 73 year old MALE admitted to [facility]. OPAL DRAKE.
[2019-09-14 15:00] VITALS: BP 174/91
--- NOTE | 2019-09-14 15:23 | NUR ---
NOTIFIED REGARDING HOSPICE RECOMMENDATIONS.
--- NOTE | 2019-09-14 16:31 | NUR ---
PT MEDICATED WITH IV MORPHINE AND IV ATIVAN PER SCHEDULE. FAMILY AT BEDSIDE. WILL MONITOR EFFECTIVENESS.
--- NOTE | 2019-09-14 17:00 | NUR ---
IN TO SEE PATIENT.
--- NOTE | 2019-09-14 17:48 | NUR ---
ATROPINE GTTS GIVEN PER PRN ORDER FOR MOIST SECRETIONS. PT SUCTIONED FOR SMALL AMOUNT OF PHLEGM. FAMILY AT BEDSIDE.
[2019-09-14 18:40] VITALS: BP 160/82
[2019-09-14 20:00] VITALS: BP 146/63
--- NOTE | 2019-09-14 21:09 | NUR ---
PATINET MOIST, GIVEN ATROPINE DROPS. WILL CONTINUE TO MONITOR.
--- NOTE | 2019-09-14 21:50 | NUR ---
ATROPINE NOT EFFECTIVE. SUCTIONED AT THIS TIME. LARGE AMOUNT OF LIGHT GREEN SECRETIONS SUCTIONED. TOLERATED WELL.
--- NOTE | 2019-09-14 21:54 | NUR ---
PATIENT MEDICATED WITH PRN MORPHINE AND ATIVAN FOR DISTRESS. WILL CHECK EFFECTIVENESS.
--- NOTE | 2019-09-14 22:10 | NUR ---
NT SUCTIONED THROUGH LEFT NARE. CONSISTED OF A MODERATED AMOUNT OF PALE GREEN SECRETIONS. NO COMPLICATIONS
--- NOTE | 2019-09-14 22:40 | NUR ---
[facility] CALLED IN REGARDING RECOMMENDATIONS REGARDING NAUSEA. DR WESTFALL CONTACTED AND INFORMED OF RECOMMENDATIONS, ORDERS RECEIVED
--- NOTE | 2019-09-14 22:40 | NUR ---
[facility] CONTACTED FOR RECOMMENDATIONS REGARDING VOMITING. DR WESTFALL CONTACTED AND INFORMED OF RECOMMENDATIONS PER DR ZANDER MAHAN AT HOSPICE, NEW ORDERS RECEIVED
[2019-09-15] VITALS: BP 159/91
--- NOTE | 2019-09-15 01:28 | NUR ---
PATIENT IV INFUSION COMPLETE. IV FLUSHED. PATIENT SLEEPING. NO SIGNS OF DISTRESS. RESPIRATIONS EASY, NON LABORED. BED IN LOWEST POSITION CALL LIGHT WITHIN REACH. WILL CONTINUE TO MONITOR.
--- NOTE | 2019-09-15 01:30 | NUR ---
[facility] NURSE CALLED TO RECEIVE UPDATE ON PATIENT. NOTIFIED HER OF PATIENT VITALS AND MILD DISTRESS. NOTIFIED HER EARLIER MEDS ORDERED HAVE BEEN EFFECTIVE.
--- NOTE | 2019-09-15 01:32 | NUR ---
PATIENT IN DISTRESS. BP AND HR ELEVATED. PRN IM HALDOL GIVEN AT THIS TIME.WILL CHECK EFFECTIVENESS.
--- NOTE | 2019-09-15 01:46 | NUR ---
NOTIFIED DR. WESTFALL OF NEW RECOMMENDATIONS FROM DR. ADLER. SEE NEW ORDERS.
--- NOTE | 2019-09-15 02:10 | NUR ---
PATIENT . 2RNS VERIFIED.
--- NOTE | 2019-09-15 02:13 | NUR ---
DR. WESTFALL AND PEARL TECHNICIAN, CARMEN, NOTIFIED OF PATIENT PASSING.
--- NOTE | 2019-09-15 02:15 | NUR ---
PATIENTS FAMILY HAVE CHOSEN [facility].
--- NOTE | 2019-09-15 02:19 | NUR ---
MIAN BARRY NOTIFIED OF NEED TO SPEAK TO FLAT SHEET MAKER'S OFFICE.
--- NOTE | 2019-09-15 02:22 | NUR ---
PITA FROM THE INDUSTRY OPERATIONS INVESTIGATOR'S OFFICE RETURNED CALL, INFORMATION REQUESTED PROVIDED. STATES THIS IS NOT A INDUSTRY OPERATIONS INVESTIGATOR'S CASE AND BODY MAY BE RELEASED.
--- NOTE | 2019-09-15 02:30 | NUR ---
DAIN FROM [facility] INFORMED PATIENT
--- NOTE | 2019-09-15 03:01 | NUR ---
LINCOLN FROM [facility] CALL NOTIFIED OF PATIENT PASSING AWAY. PATIENT ON HOLD UNTIL LINCOLN CALLS BACK. CASE #[id number].
--- NOTE | 2019-09-15 03:55 | NUR ---
PATIENT TAKEN TO [facility] AT THIS TIME.
== END 2019-09-15 03:25 | disposition expired | DRG 66 ==
LOC: ED 11:02 → EDHOLD 12:54 → 5E 12:54
PROVIDERS: Emergency Medicine; ADMIT Internal Medicine
DX: I62.9 Nontraumatic intracranial hemorrhage, unspecified (principal); G20 Parkinson's disease; K21.9 Gastro-esophageal reflux disease without esophagitis; Z51.5 Encounter for palliative care; D64.9 Anemia, unspecified; E66.9 Obesity, unspecified; G25.0 Essential tremor; K74.60 Unspecified cirrhosis of liver; I12.9 Hypertensive chronic kidney disease with stage 1 through stage 4 chronic kidney disease, or unspecified chronic kidney disease; N18.3 Chronic kidney disease, stage 3 (moderate); Z66 Do not resuscitate; E11.22 Type 2 diabetes mellitus with diabetic chronic kidney disease; E03.9 Hypothyroidism, unspecified; M10.9 Gout, unspecified; M46.86 Other specified inflammatory spondylopathies, lumbar region; Z91.81 History of falling; Z87.440 Personal history of urinary (tract) infections; Z85.038 Personal history of other malignant neoplasm of large intestine; Z88.1 Allergy status to other antibiotic agents; Z87.442 Personal history of urinary calculi; Z98.42 Cataract extraction status, left eye; Z98.41 Cataract extraction status, right eye; Z90.49 Acquired absence of other specified parts of digestive tract; Z82.49 Family history of ischemic heart disease and other diseases of the circulatory system; Z79.899 Other long term (current) drug therapy; Z68.25 Body mass index [BMI] 25.0-25.9, adult